=== PATIENT | female | born 1945 ===

== ENCOUNTER 2017-12-14 09:19 | Day surgery (SDC) | payer MEDICARE, MEDICAID ==
[2017-12-08 11:58] VITALS: BMI 30.2
[2017-12-14] MEDS ORDERED: methylPREDNISolone Depo 80 mg/ml Inj ONE (09:43)
[2017-12-14] MEDS ORDERED: Iohexol 300 10 ML ONE (09:44)
[2017-12-14] MEDS ORDERED: Bupivacaine HCl 0.25% PF (30 ml) Inj ONE (09:44)
[2017-12-14] MEDS ORDERED: Lidocaine 2% MPF (5 ml) Inj ONE ×2 (09:46→11:39)
[2017-12-14] MEDS ORDERED: Propofol 10 mg/ml Inj (20 ML) ONE (11:33)
[2017-12-14] MEDS ORDERED: Lactated Ringer's 1,000 ML IV ONE (11:40)
[2017-12-14] MEDS ORDERED: HYDROmorphone 0.5 mg/0.5 ml ISec IVP PRN (11:56)
[2017-12-14] MEDS ORDERED: Lactated Ringer's 1,000 ML IV SCH (12:00)
[2017-12-14 12:59] VITALS: RESP 16; O2SAT 99
[2017-12-14 13:53] VITALS: BP 153/75; PULSE 74; TEMP 98.4
--- NOTE | 2017-12-14 22:42 | OP ---
Copied To: Kristina Omalley MD Attending MD: Kristina Omalley MD PROCEDURE DATE: 12/14/2017 PREOPERATIVE DIAGNOSIS: Lumbar spondylosis. POSTOPERATIVE DIAGNOSIS: Lumbar spondylosis. PROCEDURES: Right L3, L4 and L5 medial branch nerve block and right sacroiliac joint steroid injection. ANESTHESIOLOGIST: Darron Reddy DO SURGEON: Kristina Omalley MD TYPE OF ANESTHESIA: Monitored anesthesia care. COMPLICATIONS: None. SPECIMEN: None. DESCRIPTION OF PROCEDURE: As follows: After we had discussion of the procedure with the patient including its risks, benefits, alternatives, outcome data, possibility of no effect or increased pain, the patient consented to the procedure. She denied any recent infection, bleeding tendencies, or being on anticoagulants. The decision was then made to proceed to the OR. The patient was placed on a fluoroscopy table in a prone position with two pillows underneath her abdomen. The back was prepped and draped in the usual sterile fashion. A sterile technique was adhered to during the entire procedure. The L4 and L5 vertebral levels were first identified in the anteroposterior view. The L3, L4 and L5 medial branch nerves were located at the junction of the superior articular process and the transverse process of the L4 and L5 pedicle along with the sacral ala. The three above targeted areas were visualized by turning the fluoroscopy towards the right at approximately 15 degrees. The skin overlying the three above targeted areas was then infiltrated with 1% lidocaine using 25-gauge needle. Subsequently, a 22-gauge 3-1/2-inch spinal needle was then incrementally advanced under fluoroscopic guidance until the tip of needle made bony contact with all three targeted areas. After satisfactory positioning of all three needles, approximately 3 mL of 0.25% Marcaine and Depo-Medrol mixture was injected. The needle was then removed. Then, the right sacroiliac joint was visualized on the anteroposterior view. The target is at the posterior opening to the inferior pole of the joint. The skin overlying this area was then infiltrated with 1% lidocaine using 25-gauge needle. Subsequently, a 22-gauge 3-1/2-inch spinal needle was then incrementally advanced under fluoroscopic guidance until the tip of the needle walked into the joint capsule. This was confirmed by injecting approximately 0.5 mL of Isovue contrast. After satisfactory positioning of the needle, approximately 3 mL of 0.25% Marcaine and Depo-Medrol mixture was injected. The needle was then removed. The patient's back was cleaned and dried, and bandages were applied. The patient was then transferred to the recovery area in good condition without any signs of GENERAL ASSEMBLER toxicity or any neurological deficit. She will be following in the office in approximately two to four weeks. En-Chato Omalley MD
--- NOTE | 2017-12-15 11:57 | RAD ---
Date of service: 12/14/2017 PROCEDURE: Lumbar epidural steroid injection. HISTORY: PAIN MANAGEMENT COMPARISON: None TECHNIQUE: Standard protocol for this study/examination. FINDINGS: Total fluoroscopic time (continuous mode) utilized during the procedure 18.3 (seconds). IMPRESSION: Total exam DLP: 5.72 (mGy)
== END 2017-12-14 13:55 | disposition home or self-care (01) ==
LOC: H.OPSURG 09:19
PROVIDERS: ATTEND Anesthesiology
DX: M47.816 Spondylosis without myelopathy or radiculopathy, lumbar region (principal); M46.1 Sacroiliitis, not elsewhere classified
CPT/HCPCS: 64493; 64494; 82948; J1040; J2704; J7120; Q9967

== ENCOUNTER 2018-07-22 09:06 | Emergency (ER) | payer MEDICARE, MEDICAID ==
[2018-07-22 09:14] VITALS: BMI 33.2
--- NOTE | 2018-07-22 10:37 | ED PDOC ---
Lower Extremity Pain/Injury Time Seen by Provider: 07/22/18 10:00 Chief Complaint (Nursing): Lower Extremity Problem/Injury History Per: Patient History/Exam Limitations: no limitations Onset/Duration Of Symptoms: Days Current Symptoms Are (Timing): Still Present Severity: Moderate Additional Complaint(s): 72 yo F with h/o DM, DVTs and breast cancer, presents with right lower leg pain, redness and swelling for one month. Pt reports she saw her PMD originally and was told it may be a small clot, but the pain and redness have gotten worse. She called her supervisor roving department yesterday but cannot be seen until 08/14 and was told to come to the ER which is why she is here now. Pt reports pain is worse when she walks, she feels burning pain. Pain is better when she is resting with her legs up.The redness has gotten worse as well. Pt has h/o 7-8 blood clots in her right leg, the last was in 2000 after a knee replacement, the first were after she had a b/l masectomy for breast CA which is in remission. Pt is not on anticoagulants, she has an IVC filter. Pt denies chest pain, SOB, recent travel, surgery or immobilization, smoking, hormone use. She also denies any injuries or trauma. Pt has not taken anything for pain, she reports she cannot take Ibuprofen due to abdominal pain Manufacturing Assembler: Dr. Abarca PMD: Dr. Quick - Risk Factors DVT Risk Factors: Pos: History Of DVT Past Medical History Vital Signs: Last Vital Signs Temp 97 F L 07/22/18 09:12 Pulse 85 07/22/18 09:12 Resp 18 07/22/18 09:12 BP 146/86 07/22/18 09:12 Pulse Ox 97 07/22/18 09:12 - Medical History PMH: Arthritis, Asthma, Diabetes, Gastritis, Hypercholesterolemia Denies: Chronic Kidney Disease Other PMH: breast cancer - Surgical History Surgical History: Cholecystectomy Other surgeries: bilateral masectomy, knee replacement - Family History Family History: States: Unknown Family Hx - Social History Current smoker - smoking cessation education provided: No Alcohol: None Drugs: Denies - Immunization History Hx Tetanus Toxoid Vaccination: No Hx Influenza Vaccination: No Hx Pneumococcal Vaccination: No - Home Medications Home Medications: Ambulatory Orders Medication Instructions Recorded Clonazepam 0.5 mg PO HS 09/06/14 Dicyclomine [Bentyl] 20 mg PO TID PRN 09/06/14 Esomeprazole Magnesium [Nexium] 40 mg PO DAILY 09/06/14 Fenofibrate Nanocrystallized 145 mg PO DAILY 09/06/14 [Fenofibrate] Rosuvastatin Calcium [Crestor] 40 mg PO DAILY 09/06/14 Sitagliptin Phosphate [Januvia] 100 mg PO DAILY 09/06/14 Aspirin [Ecotrin] 81 mg PO DAILY 12/06/14 Tiotropium [place] Inhaler 1 inhaler INH DAILY 02/28/15 [Spiriva Inhalation Handihaler Device] Clindamycin [Cleocin] 450 mg PO TID 7 Days #21 cap 07/22/18 - Allergies Allergies/Adverse Reactions: Allergies Allergy/AdvReac Type Severity Reaction Status Date / Time Sulfa (Sulfonamide Allergy RASH Verified 12/14/17 09:53 Antibiotics) Wells Criteria for PE - Wells Criteria for Pulmonary Embolism Clinical Signs and Symptoms of DVT: Yes Heart Rate >100: No Immobilization at least 3 days;Surgery previous 4 weeks: No Previous, objectively diagnosed PE or DVT: Yes Hemoptysis: No Malignancy w/treatment within 6 months, or palliative: No Total Score: 4.5 Review of Systems Constitutional: Negative for: Fever Cardiovascular: Negative for: Chest Pain Respiratory: Negative for: Shortness of Breath Physical Exam - Physical Exam Comments: GENERALIZED APPEARANCE: Patient is AAO x 3, in no acute distress. SKIN: Warm, dry; (-) cyanosis; (-) rash. HEAD: (-) scalp swelling, (-) tenderness. EYES: (-) conjunctival pallor, (-) scleral icterus. ENMT: Pharynx: (-) erythema; airway patent: (-) stridor; mucous membranes moist. NECK: (-) tenderness, (-) stiffness, (-) lymphadenopathy, (-) thyromegaly. CHEST AND RESPIRATORY: (-) rales, (-) rhonchi, (-) wheezes, (-) pleural friction rub; breathsounds equal bilaterally. HEART AND CARDIOVASCULAR: (-) irregularity; (-) murmur, (-) gallop, (-) pericardial rub. ABDOMEN AND GI: Soft; (-) tenderness, (-) guarding, (-) rebound, (-) palpable masses, (-)CVA tenderness. EXTREMITIES: RLE: +2 pulses, capillary refill <2sec, (+) FROM, mild swelling to lower R leg with mild erythema, warm to touch, moderate tenderness to palpation to posterior calf and lower leg, (+) Homans, (+) palpable cord Opposite leg: LLE. Distal pulses +2, capillary refill <2sec, (+) FROM, no swelling, erythema or palpable cords NEURO AND PSYCH: Mental status as above. Cranial nerves grossly intact; strengthsymmetric. - Laboratory Results Result Diagrams: 07/22/18 11:07 07/22/18 11:07 - ECG O2 Sat by Pulse Oximetry: 97 Medical Decision Making Medical Decision Makin:00 initial evaluation, 72 yo F with h/o DVTs presenting for RLE redness, swelling and pain [id number], DVT vs cellulitis * cbc, cmp, coags * duplex * xr * tylenol PO * re eval 14:15 pt recently back from [place], pending results, states she is otherwise feeling the same, pain is controlled while resting 15;34 Xray and US results reviewed, negative for DVT, xr reporting possible old fracture to medial mal, pt with no tenderness to that area, erythema and pain are proximal to the area, will consult podiatry spoke to puff iron operator podiatry, reviewed xray who does not see anything abnormal, can f/u in clinic if she has ankle, but nothing to right now as there is no pain at that area or open wound Discussed with pt all results, diagnosis, treatment, return precautions and f/u with pt who is understanding, in agreement and stable for dc Disposition - Clinical Impression Clinical Impression: Cellulitis of leg, right - Disposition Referrals: Podiatry Clinic [Outside] Mynor Quick MD [Family Provider] - Disposition Time: 15:35 Condition: STABLE Additional Instructions: Return to ED for new or worsening symptoms, fever >100.4, increase redness or pain, chest pain or difficulty breathing. Follow up with your primary care doctor in 1-2 days. Follow up with podiatry clinic if you develop ankle pain. Take antibiotics as prescribed until finished. Rest, and elevate your leg. Prescriptions: Clindamycin [Cleocin] 450 mg PO TID 7 Days #21 cap Instructions: Cellulitis (Skin Infection), Adult (DC) Forms: Gifts that Give (Divehi) Print Language: GE[place]GIAN - POA Present On Arrival: None Results - Diagnostic Imaging Results Radiology Results Extremity Ultrasound 07/22/18 10:05 IMPRESSION: No evidence of deep venous thrombosis in the right lower extremity. Tibia/Fibula X-Ray 07/22/18 10:05 IMPRESSION: No evidence of acute displaced fracture nor dislocation. Right total knee replacement with no evidence of hardware failure Slight cortical regularity of the inferior tip of the medial malleolus mild posttraumatic changes distal; rule out sequela of old trauma - Lab Results Lab Results: 07/22/18 07/22/18 07/22/18 11:07 11:07 11:07 WBC 6.9 RBC 4.05 Hgb 12.6 Hct 37.4 MCV 92.3 MCH 31.2 H MCHC 33.9 RDW 13.4 Plt Count 208 MPV 8.8 Neut % (Auto) 65.5 Lymph % (Auto) 24.9 [place] % (Auto) 7.8 Eos % (Auto) 1.5 Baso % (Auto) 0.3 Neut # (Auto) 4.5 Lymph # (Auto) 1.7 [place] # (Auto) 0.5 Eos # (Auto) 0.1 Baso # (Auto) 0.0 PT 11.9 INR 1.0 APTT 28.2 Sodium 144 Potassium 4.4 Chloride 110 H Carbon Dioxide 26 Anion Gap 12 BUN 19 H Creatinine 0.5 L Est GFR ( Amer) > 60 Est GFR (Non-Af Amer) > 60 Random Glucose 148 H Calcium 9.6 Total Bilirubin 0.3 AST 39 H ALT 23 Alkaline Phosphatase 50 Total Protein 7.1 Albumin 3.8 Globulin 3.3 Albumin/Globulin Ratio 1.2
[2018-07-22 11:17] LABS: BASO % 0.3 % (0.0-2.0); EOS # 0.1 K/uL (0.0-0.7); EOS % 1.5 % (0.0-4.0); HEMOGLOBIN 12.6 g/dL (12.0-16.0); LYMPH # 1.7 K/uL (1.0-4.3); LYMPH % 24.9 % (20.0-40.0); MEAN CELL VOLUME 92.3 fl (81.0-99.0); MEAN CORPUSCULAR HEMOGLOBIN 31.2 pg (27.0-31.0); MEAN CORPUSCULAR HGB CONC 33.9 g/dL (33.0-37.0); MEAN PLATELET VOLUME 8.8 fl (7.2-11.7); MONO # 0.5 K/uL (0.0-0.8); MONO % 7.8 % (0.0-10.0); NEUT # 4.5 K/uL (1.8-7.0); NEUT % 65.5 % (50.0-75.0); RBC 4.05 Mil/uL (3.80-5.20); RED CELL DISTRIBUTION WIDTH 13.4 % (11.5-14.5); WHITE BLOOD COUNT 6.9 K/uL (4.8-10.8)
[2018-07-22 11:20] LABS: PROTHROMBIN TIME 11.9 Seconds (9.8-13.1)
[2018-07-22 11:23] LABS: PARTIAL THROMBOPLASTIN TIME 28.2 Seconds (25.6-37.1)
[2018-07-22 11:24] LABS: ALB/GLOB RATIO 1.2 (1.0-2.1); ALBUMIN 3.8 g/dL (3.5-5.0); ALT/SGPT 23 U/L (9-52); AST/SGOT 39 U/L (14-36); BLOOD UREA NITROGEN 19 mg/dl (7-17); CALCIUM 9.6 mg/dL (8.4-10.2); GFR NON-AFRICAN AMERICAN > 60
--- NOTE | 2018-07-22 15:12 | RAD ---
Date of service: 07/22/2018 PROCEDURE: Radiographs of the right tibia and fibula. HISTORY: right leg pain and swelling COMPARISON: None available TECHNIQUE: Frontal and lateral views obtained. FINDINGS: BONES: No fracture or destructive lesion. Findings could represent sequela of old trauma JOINT SPACES: In situ in situ total knee replacement. Hardware appears intact without evidence of loosening or infection questionable. Slight cortical irregularity of the inferior tip of the medial malleolus. OTHER FINDINGS: None. IMPRESSION: No evidence of acute displaced fracture nor dislocation. Right total knee replacement with no evidence of hardware failure Slight cortical regularity of the inferior tip of the medial malleolus mild posttraumatic changes distal; rule out sequela of old trauma
--- NOTE | 2018-07-22 15:22 | US ---
Date of service: 07/22/2018 PROCEDURE: Right lower extremity venous duplex Doppler. HISTORY: h/o clots, right left pain and swelling COMPARISON: None available. TECHNIQUE: Common femoral, superficial femoral, popliteal and posterior tibial veins were evaluated. Flow was assessed with color Doppler, compressibility, assessment of phasic flow and augmentation response. FINDINGS: COMMON FEMORAL VEIN: Unremarkable. SUPERFICIAL FEMORAL VEIN: Unremarkable. POPLITEAL VEIN: Unremarkable. POSTERIOR TIBIAL VEIN: Unremarkable. OTHER FINDINGS: None. IMPRESSION: No evidence of deep venous thrombosis in the right lower extremity.
[2018-07-22 15:33] VITALS: BP 132/74; PULSE 78; RESP 19; TEMP 98.3
[2018-07-22 15:35] VITALS: O2SAT 97
== END 2018-07-22 15:50 | disposition home or self-care (01) ==
LOC: H.ER 09:06
DX: L03.115 Cellulitis of right lower limb (principal); E11.9 Type 2 diabetes mellitus without complications; J45.909 Unspecified asthma, uncomplicated; Z85.3 Personal history of malignant neoplasm of breast; Z86.718 Personal history of other venous thrombosis and embolism; Z96.653 Presence of artificial knee joint, bilateral; Z88.2 Allergy status to sulfonamides; Z79.82 Long term (current) use of aspirin; E78.00 Pure hypercholesterolemia, unspecified

== ENCOUNTER 2018-07-31 15:06 | Inpatient (IN) | payer MEDICARE, MEDICAID ==
[2018-07-31 15:07] VITALS: BMI 33.2
--- NOTE | 2018-07-31 16:32 | ED PDOC ---
Lower Extremity Pain/Injury Time Seen by Provider: 07/31/18 15:59 Chief Complaint (Nursing): Lower Extremity Problem/Injury Chief Complaint (Provider): left leg redness History Per: Patient History/Exam Limitations: no limitations Onset/Duration Of Symptoms: Days Current Symptoms Are (Timing): Still Present Severity: Moderate Pain Scale Rating Of: 6 Additional History Per: Patient Additional Complaint(s): 72 y/o female with past medical history of DM and DVT presents to the ED for worsening lowwer leg swelling and redness. She states she was seen by Dr. Holland (derm) today for follow up on skin redness and sent to the ed for re- eval and admission. Pt states she was seen here on 07/22/3018 and sent home on Clindamycin with no improvement after 9 days. Pt reports the pain/swelling and redness has worsened since last seen. Dr. Bailey (PMD) wants patient admitted for iv antibiotics Past Medical History Reviewed: Historical Data, Nursing Documentation, Vital Signs Vital Signs: Last Vital Signs Temp 98.4 F 07/31/18 15:13 Pulse 91 H 07/31/18 15:13 Resp 18 07/31/18 15:13 BP 158/89 H 07/31/18 15:13 Pulse Ox 97 07/31/18 15:13 TAI Report Viewed: No - Medical History PMH: Arthritis, Asthma, Diabetes, Gastritis, Hypercholesterolemia Denies: Chronic Kidney Disease - Surgical History Surgical History: Cholecystectomy - Family History Family History: States: Unknown Family Hx - Immunization History Hx Tetanus Toxoid Vaccination: No Hx Influenza Vaccination: No Hx Pneumococcal Vaccination: No - Home Medications Home Medications: Ambulatory Orders Medication Instructions Recorded Clonazepam 1 mg PO HS 09/06/14 Esomeprazole Magnesium [Nexium] 40 mg PO QPM 09/06/14 Fenofibrate Nanocrystallized 145 mg PO DAILY 09/06/14 [Fenofibrate] Rosuvastatin Calcium [Crestor] 40 mg PO DAILY 09/06/14 Sitagliptin Phosphate [Januvia] 100 mg PO DAILY 09/06/14 Aspirin [Ecotrin] 81 mg PO DAILY 12/06/14 Clindamycin [Cleocin] 450 mg PO TID 7 Days #21 cap 07/22/18 Atenolol [Tenormin] 25 mg PO DAILY 07/31/18 Biotin 1 cap PO DAILY 07/31/18 Calcium Carbonate [Caltrate] 1 tab PO DAILY 07/31/18 Ergocalciferol (Vitamin D2) 50,000 unit PO SUN 07/31/18 [Vitamin D2] FLUoxetine [Prozac] 20 mg PO QPM 07/31/18 Lipase/Protease/Amylase [Creon Dr 1 cap PO BID 07/31/18 24,000 Units Capsule] Memantine HCl/Donepezil HCl 1 cap PO DAILY 07/31/18 [Namzaric 28 mg-10 mg Capsule] Tiotropium Br/Olodaterol HCl 2 puff IH DAILY 07/31/18 [Stiolto Respimat Inhal [place]] - Allergies Allergies/Adverse Reactions: Allergies Allergy/AdvReac Type Severity Reaction Status Date / Time Sulfa (Sulfonamide Allergy RASH Verified 07/31/18 15:13 Antibiotics) Wells Criteria for PE - Wells Criteria for Pulmonary Embolism Clinical Signs and Symptoms of DVT: Yes P.E is #1 Diagnosis, or Equally Likely: No Heart Rate >100: No Immobilization at least 3 days;Surgery previous 4 weeks: No Previous, objectively diagnosed PE or DVT: Yes Hemoptysis: No Malignancy w/treatment within 6 months, or palliative: No Total Score: 4.5 Review of Systems Constitutional: Negative for: Fever, Chills, Sweats, Weakness, Malaise Cardiovascular: Positive for: Edema (right lower leg edema 2+ ). Negative for: Chest Pain, Palpitations, Light Headedness Respiratory: Negative for: Cough, Shortness of Breath, SOB with Exertion, Wheezing Gastrointestinal: Negative for: Nausea, Vomiting, Abdominal Pain, Diarrhea, Melena Genitourinary Female: Negative for: Dysuria Musculoskeletal: Positive for: Leg Pain (redness to right lower leg for one month, skin is sensitive to touch. pt reports redness has not improved. ) Physical Exam - Reviewed Nursing Documentation Reviewed: Yes Vital Signs Reviewed: Yes - Physical Exam Appears: Positive for: Well, Non-toxic, No Acute Distress Head Exam: Positive for: ATRAUMATIC, NORMAL INSPECTION, NORMOCEPHALIC Skin: Positive for: Normal Color, Warm (NO SKIN BREAK DOWN NOTED TO RIGHT LOWER LEG), Dry Eye Exam: Positive for: EOMI, Normal appearance, PERRL ENT: Positive for: Normal ENT Inspection Neck: Positive for: Normal, Painless ROM, Supple Cardiovascular/Chest: Positive for: Regular Rate, Rhythm Respiratory: Positive for: CNT, Normal Breath Sounds Pulses-Dorsalis Pedis (L): 2+ Pulses-Dorsalis Pedis (R): 2+ Pulses-Radial (L): 2+ Pulses-Radial (R): 2+ Gastrointestinal/Abdominal: Positive for: Normal Exam, Bowel Sounds, Soft. Negative for: Tenderness, Mass Back: Positive for: Normal Inspection Extremity: Positive for: Normal ROM, Tenderness (right lower leg pain, circumferential redness above the right ankle ), Capillary Refill (<secs bilat, right lower extremity warm to touch, redness does not extend to foot. no swelling to right foot noted. ) Neurological/Psych: Positive for: Awake, Alert, Normal Tone, Oriented - Laboratory Results Result Diagrams: 07/31/18 16:52 07/31/18 16:52 - ECG O2 Sat by Pulse Oximetry: 97 - Progress ED Course And Treament: CBC CMP ESR BLOOD CULTURE X2 VANCOMYCIN 1GM IV PT HAS TWO US DOPPLERS OF LOWER EXTREMITY LAST ONE DONE 07/22 WHICH WAS NEGATIVE FOR DVT. PT ALSO HAD XRAY OF TIB/FIB NEG FOR OSTEO. NO FURTHER WORK-UP NEEDED IN THE ED. PODIATRY CONSULTED, TEAM WILL SEE PATIENT ON THE FLOOR. 18:20: PT RE-EVALUATED AT THIS TIME, LABS REVIEWED BY ME. CLINICAL FINDINGS DISCUSSED WITH PT, MADE AWARE OF ADMISSION AND PLAN. PT AGREES. PT C/O PAIN TO RIGHT LOWER LEG ORDER FOR TYLENOL 975MG PO TO BE GIVEN. VANCOMYCIN 1GM INFUSING AT THIS TIME. NO SIGNS OF ALLERGIC REACTION. PT ADMITTED TO DR. BAILEY SERVICE, INPATIENT MED/SURG. Disposition - Clinical Impression Clinical Impression: Cellulitis - Patient ED Disposition Is Patient to be Admitted: Yes Doctor Will See Patient In The: Hospital Counseled Patient/Family Regarding: Diagnosis - Disposition Disposition Time: 18:20 Condition: STABLE - Pt Status Changed To: Hospital Disposition Of: Inpatient - Admit Certification Admit to Inpatient:: After my assessment, the patient will require hospitalization for at least two midnights. This is because of the severity of symptoms shown, intensity of services needed, and/or the medical risk in this patient being treated as an outpatient. - POA Present On Arrival: None
[2018-07-31] MEDS ORDERED: Vancomycin 1 g Inj ONE (16:53)
[2018-07-31 16:59] LABS: BASO % 0.5 % (0.0-2.0); EOS # 0.1 K/uL (0.0-0.7); EOS % 1.1 % (0.0-4.0); HEMOGLOBIN 12.2 g/dL (12.0-16.0); LYMPH # 1.9 K/uL (1.0-4.3); LYMPH % 25.2 % (20.0-40.0); MEAN CELL VOLUME 92.7 fl (81.0-99.0); MEAN CORPUSCULAR HEMOGLOBIN 31.2 pg (27.0-31.0); MEAN CORPUSCULAR HGB CONC 33.7 g/dL (33.0-37.0); MEAN PLATELET VOLUME 8.8 fl (7.2-11.7); MONO # 0.6 K/uL (0.0-0.8); MONO % 7.9 % (0.0-10.0); NEUT % 65.3 % (50.0-75.0); RBC 3.91 Mil/uL (3.80-5.20); RED CELL DISTRIBUTION WIDTH 13.6 % (11.5-14.5); WHITE BLOOD COUNT 7.7 K/uL (4.8-10.8)
[2018-07-31 17:08] LABS: PROTHROMBIN TIME 11.9 Seconds (9.8-13.1)
[2018-07-31 17:10] LABS: PARTIAL THROMBOPLASTIN TIME 28.3 Seconds (25.6-37.1)
[2018-07-31 17:22] LABS: ALB/GLOB RATIO 1.4 (1.0-2.1); ALBUMIN 4.2 g/dL (3.5-5.0); ALT/SGPT 39 U/L (9-52); AST/SGOT 35 U/L (14-36); BLOOD UREA NITROGEN 16 mg/dl (7-17); CALCIUM 9.4 mg/dL (8.4-10.2); GFR NON-AFRICAN AMERICAN > 60
[2018-08-01] MEDS: Piperacillin/Tazobact 3.375 GM in Sodium Chloride 0.9% 100 ML IVPB SCH ×2 (04:20→09:33)
[2018-08-01 06:14] LABS: SQUAMOUS EPITHIAL 1 /hpf (0-5); URINE BILIRUBIN NEGATIVE (NEGATIVE); URINE BLOOD SMALL (NEGATIVE); URINE CLARITY CLEAR (Clear); URINE COLOR YELLOW (YELLOW); URINE GLUCOSE (UA) NEG (NEGATIVE); URINE LEUKOCYTE ESTERASE TRACE Leu/uL (Negative); URINE PROTEIN NEGATIVE (NEGATIVE); URINE UROBILINOGEN 0.2-1.0 mg/dL (0.2-1.0)
[2018-08-01 06:48] LABS: HEMOGLOBIN 11.7 g/dL (12.0-16.0); MEAN CELL VOLUME 92.7 fl (81.0-99.0); MEAN CORPUSCULAR HEMOGLOBIN 30.7 pg (27.0-31.0); MEAN CORPUSCULAR HGB CONC 33.2 g/dL (33.0-37.0); RBC 3.82 Mil/uL (3.80-5.20); RED CELL DISTRIBUTION WIDTH 13.7 % (11.5-14.5); WHITE BLOOD COUNT 5.8 K/uL (4.8-10.8)
[2018-08-01 07:03] LABS: ALB/GLOB RATIO 1.3 (1.0-2.1); ALBUMIN 3.9 g/dL (3.5-5.0); ALT/SGPT 37 U/L (9-52); AST/SGOT 22 U/L (14-36); BLOOD UREA NITROGEN 19 mg/dl (7-17); CALCIUM 9.4 mg/dL (8.4-10.2); GFR NON-AFRICAN AMERICAN > 60; HDL CHOLESTEROL 44 MG/DL (30-70)
[2018-08-01 07:09] LABS: LDL CHOLESTEROL 55 mg/dL (0-129)
[2018-08-01] MEDS ORDERED: Patient's Own Med (Memantine Hcl/Donepezil Hcl [Namzaric 28 Mg-10 Mg Capsule] 1 CAP) PO SCH (09:00)
[2018-08-01] MEDS ORDERED: Patient's Own Med (Calcium Carbonate [Caltrate] 1 TAB) PO SCH (09:00)
[2018-08-01] MEDS ORDERED: Amylase/Lipase/Protease 5,000 Units ECC PO SCH (09:00)
[2018-08-01] MEDS: Pantoprazole 40 mg EC Tab PO SCH (09:31)
[2018-08-01] MEDS: Enoxaparin 40 mg Syringe SC SCH (09:31)
--- NOTE | 2018-08-01 10:10 | CP.PCM.CON ---
History of Present Illness - History of Present Illness History of Present Illness: Podiatry consult note - Dr. Mohamud 72F seen and evaluated at bedside this AM with right LE cellulitis. Resting comfortably, reports mild pain to her right LE. States that she had been seen by Dr. Quick a few weeks ago and was told that she had issues with her veins. States that she had testing for blood clots which was negative. States that she saw a quality review specialist who told her to report to the ED for cellulitis and to receive IV abx as she was given PO abx in the past which did not help the redness or pain. Denies n/v/f/c/sob today and has no other acute complaints. PMHx: DM and DVT PSHx: cholecystectomy All: sulfa Past Patient History - Past Medical History & Family History Past Medical History?: Yes - Past Social History Smoking Status: Never Smoked - CARDIAC Hx Cardiac Disorders: Yes Hx Hypercholesterolemia: Yes - PULMONARY Hx Respiratory Disorders: No - NEUROLOGICAL Hx Neurological Disorder: No - HEENT Hx HEENT Problems: Yes Hx Cataracts: Yes - RENAL Hx Chronic Kidney Disease: No - ENDOCRINE/METABOLIC Hx Endocrine Disorders: Yes Hx Diabetes Mellitus Type 2: Yes - HEMATOLOGICAL/ONCOLOGICAL Hx Blood Disorders: Yes Hx Blood Transfusions: Yes Hx Blood Transfusion Reaction: No Hx Cancer: Yes (BILATERAL BREAST) - INTEGUMENTARY Hx Dermatological Problems: No Hx Cellulitis: Yes - MUSCULOSKELETAL/RHEUMATOLOGICAL Hx Musculoskeletal Disorders: Yes Hx Arthritis: Yes Hx Falls: No - GASTROINTESTINAL Hx Gastrointestinal Disorders: Yes Hx Gastritis: Yes - GENITOURINARY/GYNECOLOGICAL Hx Genitourinary Disorders: No - PSYCHIATRIC Hx Psychophysiologic Disorder: No Hx Substance Use: No - SURGICAL HISTORY Hx Surgeries: Yes Hx Cholecystectomy: Yes - ANESTHESIA Hx Anesthesia: Yes Hx Anesthesia Reactions: No Hx Malignant Hyperthermia: No Meds Allergies/Adverse Reactions: Allergies Allergy/AdvReac Type Severity Reaction Status Date / Time Sulfa (Sulfonamide Allergy RASH Verified 07/31/18 15:13 Antibiotics) - Medications Medications: Current Medications Acetaminophen (Tylenol 325mg Tab) 650 mg PO Q4 PRN PRN Reason: Pain, moderate (4-7) Aspirin (Ecotrin) 81 mg PO DAILY [facility] Last Admin: 08/01/18 09:31 Dose: 81 mg Atenolol (Tenormin) 25 mg PO DAILY [facility] Last Admin: 08/01/18 09:31 Dose: 25 mg Calcium Carbonate (Oscal) 500 mg PO DAILY [facility] Last Admin: 08/01/18 09:31 Dose: 500 mg Clonazepam (Klonopin) 0.5 mg PO HS [facility] Last Admin: 07/31/18 23:34 Dose: 0.5 mg Enoxaparin Sodium (Lovenox) 40 mg SC DAILY [facility]; Protocol Last Admin: 08/01/18 09:31 Dose: 40 mg Ergocalciferol (Drisdol 50,000 Intl Units Cap) 1 cap PO SUN [facility] Fluoxetine HCl (Prozac) 20 mg PO QPM [facility] Home Med (Lipase/Protease/Amylase [Creon Dr 24,000 Units Capsule]) 1 cap PO BID [facility] Home Med (Memantine Hcl/Donepezil Hcl [Namzaric 28 Mg-10 Mg Capsule]) 1 cap PO DAILY [facility] Home Med (Tiotropium Br/Olodaterol Hcl [Stiolto Respimat Inhal [place]]) 2 puff IH DAILY [facility] Piperacillin Sod/Tazobactam (Sod 3.375 gm/ Sodium Chloride) 100 mls @ 100 mls/hr IVPB Q6 [facility]; Protocol Last Admin: 08/01/18 09:33 Dose: 100 mls/hr Vancomycin HCl 1 gm/ Sodium (Chloride) 250 mls @ 166.667 mls/hr IVPB Q12 [facility]; Protocol Pantoprazole Sodium (Protonix Ec Tab) 40 mg PO DAILY [facility] Last Admin: 08/01/18 09:31 Dose: 40 mg Sitagliptin Phosphate (Januvia) 100 mg PO DAILY [facility] Last Admin: 08/01/18 09:31 Dose: 100 mg Physical Exam - Constitutional Appears: Non-toxic - Head Exam Head Exam: ATRAUMATIC - Extremities Exam Additional comments: RLE focused exam VASC: DP and PT pulses palpable; cap refill <3 seconds; mild edema noted to the LE; pedal hair growth absent DERM: no open lesions or wounds present; erythema present to the posterior aspect of the right leg and ankle; no streaking noted ORTHO: mild pain on palpation at the erythematous region NEURO: gross and protective sensation intact - Neurological Exam Neurological exam: Alert, Oriented x3 - Psychiatric Exam Psychiatric exam: Normal Affect Results - Vital Signs Recent Vital Signs: Last Vital Signs Temp 98.2 F 08/01/18 08:27 Pulse 73 08/01/18 09:31 Resp 20 08/01/18 08:27 BP 149/85 08/01/18 09:31 Pulse Ox 98 08/01/18 08:27 - Labs Result Diagrams: 08/01/18 05:30 08/01/18 05:30 Labs: Laboratory Results - last 24 hr 07/31/18 07/31/18 07/31/18 16:52 16:52 16:52 WBC 7.7 RBC 3.91 Hgb 12.2 Hct 36.2 MCV 92.7 MCH 31.2 H MCHC 33.7 RDW 13.6 Plt Count 233 MPV 8.8 Neut % (Auto) 65.3 Lymph % (Auto) 25.2 [place] % (Auto) 7.9 Eos % (Auto) 1.1 Baso % (Auto) 0.5 Neut # (Auto) 5.0 Lymph # (Auto) 1.9 [place] # (Auto) 0.6 Eos # (Auto) 0.1 Baso # (Auto) 0.0 ESR PT 11.9 INR 1.0 APTT 28.3 Sodium 142 Potassium 3.9 Chloride 106 Carbon Dioxide 28 Anion Gap 12 BUN 16 Creatinine 0.9 Est GFR ( Amer) > 60 Est GFR (Non-Af Amer) > 60 POC Glucose (mg/dL) Random Glucose 144 H Calcium 9.4 Total Bilirubin 0.3 AST 35 ALT 39 Alkaline Phosphatase 48 Total Protein 7.3 Albumin 4.2 Globulin 3.1 Albumin/Globulin Ratio 1.4 Triglycerides Cholesterol LDL Cholesterol Direct HDL Cholesterol Thyroxine (T4) TSH 3rd Generation Urine Color Urine Clarity Urine pH Ur Specific [place] Urine Protein Urine Glucose (UA) Urine Ketones Urine Blood Urine Nitrate Urine Bilirubin Urine Urobilinogen Ur Leukocyte Esterase Urine RBC (Auto) Urine Microscopic WBC Ur Squamous Epith Cells 07/31/18 07/31/18 07/31/18 19:15 21:42 23:49 WBC RBC Hgb Hct MCV MCH MCHC RDW Plt Count MPV Neut % (Auto) Lymph % (Auto) [place] % (Auto) Eos % (Auto) Baso % (Auto) Neut # (Auto) Lymph # (Auto) [place] # (Auto) Eos # (Auto) Baso # (Auto) ESR 18 PT INR APTT Sodium Potassium Chloride Carbon Dioxide Anion Gap BUN Creatinine Est GFR ( Amer) Est GFR (Non-Af Amer) POC Glucose (mg/dL) 179 H Random Glucose Calcium Total Bilirubin AST ALT Alkaline Phosphatase Total Protein Albumin Globulin Albumin/Globulin Ratio Triglycerides Cholesterol LDL Cholesterol Direct HDL Cholesterol Thyroxine (T4) TSH 3rd Generation Urine Color Yellow Urine Clarity Clear Urine pH 5.0 Ur Specific [place] 1.023 Urine Protein Negative Urine Glucose (UA) Neg Urine Ketones Negative Urine Blood Small Urine Nitrate Negative Urine Bilirubin Negative Urine Urobilinogen 0.2-1.0 Ur Leukocyte Esterase Trace Urine RBC (Auto) 4 H Urine Microscopic WBC 17 H Ur Squamous Epith Cells 1 08/01/18 08/01/18 08/01/18 05:25 05:30 05:30 WBC 5.8 RBC 3.82 Hgb 11.7 L Hct 35.4 MCV 92.7 MCH 30.7 MCHC 33.2 RDW 13.7 Plt Count 218 MPV Neut % (Auto) Lymph % (Auto) [place] % (Auto) Eos % (Auto) Baso % (Auto) Neut # (Auto) Lymph # (Auto) [place] # (Auto) Eos # (Auto) Baso # (Auto) ESR PT INR APTT Sodium 141 Potassium 3.9 Chloride 108 H Carbon Dioxide 24 Anion Gap 13 BUN 19 H Creatinine 0.6 L Est GFR ( Amer) > 60 Est GFR (Non-Af Amer) > 60 POC Glucose (mg/dL) 129 H Random Glucose 132 H Calcium 9.4 Total Bilirubin 0.4 AST 22 ALT 37 Alkaline Phosphatase 44 Total Protein 7.0 Albumin 3.9 Globulin 3.0 Albumin/Globulin Ratio 1.3 Triglycerides 146 Cholesterol 118 LDL Cholesterol Direct 55 HDL Cholesterol 44 Thyroxine (T4) 10.5 TSH 3rd Generation 3.21 Urine Color Urine Clarity Urine pH Ur Specific [place] Urine Protein Urine Glucose (UA) Urine Ketones Urine Blood Urine Nitrate Urine Bilirubin Urine Urobilinogen Ur Leukocyte Esterase Urine RBC (Auto) Urine Microscopic WBC Ur Squamous Epith Cells Assessment & Plan - Assessment and Plan (Free Text) Assessment: 72F with RLE cellulitis Plan: Patient seen and evaluated Discussed with Dr. Mohamud Continue abx per medicine Left open Continue lotion on feet Pillow for offloading of area with cellulitis Thank you for the consult Upon d/c will follow with Dr. Mohamud as outpatient Will continue to follow - Date & Time Date: 08/01/18 Time: 10:19
--- NOTE | 2018-08-01 10:53 | CP.PCM.CON ---
History of Present Illness - History of Present Illness History of Present Illness: Infectious Disease Consultation- Asked to see this patient at the request of for right leg cellulitis. HPI- Patient is a pleasant 72 year old female with PMH of DM II, breast CA s/p b/l mastectomy, multiple DVT, right knee replacement many years ago who was admitted for redness and swelling behind her right lower leg. Patient states that she has had this for the past 2 months and she has been on several different antibiotics as outpatient. She states she was seen by Dr. Holland yesterday for follow up on skin redness and sent to the ed for re-eval and IV antibiotics. Pt. states she was on keflex as outpatient and was f/u with corporate scheduler and PMD. Pt states she was seen here on 07/22/3018 and sent home on Clindamycin with no improvement after 9 days and then she saw the corporate scheduler amd was on few days of keflex as per him but when she went to see corporate scheduler for f/u yesterday he advised her to go to ED for further eval and treatment since her right LE redness and swelling had worsened. She also c/o pain in that region. She denies any injury to the area. She does state that she has had multiple DVT in that same leg. Since admission last night she has been on IV vanco and zosyn as per and she states the swelling and the redness in her right leg has decreased. She denies any fever or chills. I'm asked to help with antibiotic management. Allergy- Sulfa ( rash) Review of Systems - Review of Systems Review of Systems: ROS- denies any fever or chills, denies any PÉREZ, denies any cough or sob, denies any chest pain, denies any nausea or vomiting, denies any abd. pain, denies any dysurea, denies any diarrhea, Right lower leg swelling and redness and pain, denies any injury tot he area. Past Patient History - Past Medical History & Family History Past Medical History?: Yes - Past Social History Smoking Status: Never Smoked - CARDIAC Hx Cardiac Disorders: Yes Hx Hypercholesterolemia: Yes - PULMONARY Hx Respiratory Disorders: No - NEUROLOGICAL Hx Neurological Disorder: No - HEENT Hx HEENT Problems: Yes Hx Cataracts: Yes - RENAL Hx Chronic Kidney Disease: No - ENDOCRINE/METABOLIC Hx Endocrine Disorders: Yes Hx Diabetes Mellitus Type 2: Yes - HEMATOLOGICAL/ONCOLOGICAL Hx Blood Disorders: Yes Hx Blood Transfusions: Yes Hx Blood Transfusion Reaction: No Hx Cancer: Yes (BILATERAL BREAST) - INTEGUMENTARY Hx Dermatological Problems: No Hx Cellulitis: Yes - MUSCULOSKELETAL/RHEUMATOLOGICAL Hx Musculoskeletal Disorders: Yes Hx Arthritis: Yes Hx Falls: No - GASTROINTESTINAL Hx Gastrointestinal Disorders: Yes Hx Gastritis: Yes - GENITOURINARY/GYNECOLOGICAL Hx Genitourinary Disorders: No - PSYCHIATRIC Hx Psychophysiologic Disorder: No Hx Substance Use: No - SURGICAL HISTORY Hx Surgeries: Yes Hx Cholecystectomy: Yes - ANESTHESIA Hx Anesthesia: Yes Hx Anesthesia Reactions: No Hx Malignant Hyperthermia: No Meds Allergies/Adverse Reactions: Allergies Allergy/AdvReac Type Severity Reaction Status Date / Time Sulfa (Sulfonamide Allergy RASH Verified 07/31/18 15:13 Antibiotics) - Medications Medications: Current Medications Acetaminophen (Tylenol 325mg Tab) 650 mg PO Q4 PRN PRN Reason: Pain, moderate (4-7) Aspirin (Ecotrin) 81 mg PO DAILY [facility] Last Admin: 08/01/18 09:31 Dose: 81 mg Atenolol (Tenormin) 25 mg PO DAILY [facility] Last Admin: 08/01/18 09:31 Dose: 25 mg Calcium Carbonate (Oscal) 500 mg PO DAILY [facility] Last Admin: 08/01/18 09:31 Dose: 500 mg Clonazepam (Klonopin) 0.5 mg PO HS [facility] Last Admin: 07/31/18 23:34 Dose: 0.5 mg Enoxaparin Sodium (Lovenox) 40 mg SC DAILY [facility]; Protocol Last Admin: 08/01/18 09:31 Dose: 40 mg Ergocalciferol (Drisdol 50,000 Intl Units Cap) 1 cap PO SUN [facility] Fluoxetine HCl (Prozac) 20 mg PO QPM [facility] Home Med (Lipase/Protease/Amylase [Creon Dr 24,000 Units Capsule]) 1 cap PO BID [facility] Home Med (Memantine Hcl/Donepezil Hcl [Namzaric 28 Mg-10 Mg Capsule]) 1 cap PO DAILY [facility] Home Med (Tiotropium Br/Olodaterol Hcl [Stiolto Respimat Inhal [place]]) 2 puff IH DAILY [facility] Piperacillin Sod/Tazobactam (Sod 3.375 gm/ Sodium Chloride) 100 mls @ 100 mls/hr IVPB Q6 [facility]; Protocol Last Admin: 08/01/18 09:33 Dose: 100 mls/hr Vancomycin HCl 1 gm/ Sodium (Chloride) 250 mls @ 166.667 mls/hr IVPB Q12 [facility]; Protocol Pantoprazole Sodium (Protonix Ec Tab) 40 mg PO DAILY [facility] Last Admin: 08/01/18 09:31 Dose: 40 mg Sitagliptin Phosphate (Januvia) 100 mg PO DAILY [facility] Last Admin: 08/01/18 09:31 Dose: 100 mg Physical Exam - Constitutional Appears: No Acute Distress - Head Exam Head Exam: ATRAUMATIC - Eye Exam Eye Exam: EOMI, PERRL - ENT Exam ENT Exam: Normal Oropharynx - Neck Exam Neck exam: Positive for: Full Rom - Respiratory Exam Respiratory Exam: Clear to Auscultation Bilateral, NORMAL BREATHING PATTERN - Cardiovascular Exam Cardiovascular Exam: RRR, +S1, +S2 - GI/Abdominal Exam GI & Abdominal Exam: Normal Bowel Sounds, Soft Additional comments: NT, ND - Extremities Exam Additional comments: Right posterior lower leg with demarcated area of light pink, + tenderness to palpation, minimal warmth, no fluctuation the entire right LE larger than the left with multiple varicose veins throughout - Neurological Exam Neurological exam: Alert, Oriented x3 Results - Vital Signs Recent Vital Signs: Last Vital Signs Temp 98.2 F 08/01/18 08:27 Pulse 73 08/01/18 09:31 Resp 20 08/01/18 08:27 BP 149/85 08/01/18 09:31 Pulse Ox 98 08/01/18 08:27 - Labs Result Diagrams: 08/01/18 05:30 08/01/18 05:30 Labs: Laboratory Results - last 24 hr 07/31/18 07/31/18 07/31/18 16:52 16:52 16:52 WBC 7.7 RBC 3.91 Hgb 12.2 Hct 36.2 MCV 92.7 MCH 31.2 H MCHC 33.7 RDW 13.6 Plt Count 233 MPV 8.8 Neut % (Auto) 65.3 Lymph % (Auto) 25.2 [place] % (Auto) 7.9 Eos % (Auto) 1.1 Baso % (Auto) 0.5 Neut # (Auto) 5.0 Lymph # (Auto) 1.9 [place] # (Auto) 0.6 Eos # (Auto) 0.1 Baso # (Auto) 0.0 ESR PT 11.9 INR 1.0 APTT 28.3 Sodium 142 Potassium 3.9 Chloride 106 Carbon Dioxide 28 Anion Gap 12 BUN 16 Creatinine 0.9 Est GFR ( Amer) > 60 Est GFR (Non-Af Amer) > 60 POC Glucose (mg/dL) Random Glucose 144 H Calcium 9.4 Total Bilirubin 0.3 AST 35 ALT 39 Alkaline Phosphatase 48 Total Protein 7.3 Albumin 4.2 Globulin 3.1 Albumin/Globulin Ratio 1.4 Triglycerides Cholesterol LDL Cholesterol Direct HDL Cholesterol Thyroxine (T4) TSH 3rd Generation Urine Color Urine Clarity Urine pH Ur Specific [place] Urine Protein Urine Glucose (UA) Urine Ketones Urine Blood Urine Nitrate Urine Bilirubin Urine Urobilinogen Ur Leukocyte Esterase Urine RBC (Auto) Urine Microscopic WBC Ur Squamous Epith Cells 07/31/18 07/31/18 07/31/18 19:15 21:42 23:49 WBC RBC Hgb Hct MCV MCH MCHC RDW Plt Count MPV Neut % (Auto) Lymph % (Auto) [place] % (Auto) Eos % (Auto) Baso % (Auto) Neut # (Auto) Lymph # (Auto) [place] # (Auto) Eos # (Auto) Baso # (Auto) ESR 18 PT INR APTT Sodium Potassium Chloride Carbon Dioxide Anion Gap BUN Creatinine Est GFR ( Amer) Est GFR (Non-Af Amer) POC Glucose (mg/dL) 179 H Random Glucose Calcium Total Bilirubin AST ALT Alkaline Phosphatase Total Protein Albumin Globulin Albumin/Globulin Ratio Triglycerides Cholesterol LDL Cholesterol Direct HDL Cholesterol Thyroxine (T4) TSH 3rd Generation Urine Color Yellow Urine Clarity Clear Urine pH 5.0 Ur Specific [place] 1.023 Urine Protein Negative Urine Glucose (UA) Neg Urine Ketones Negative Urine Blood Small Urine Nitrate Negative Urine Bilirubin Negative Urine Urobilinogen 0.2-1.0 Ur Leukocyte Esterase Trace Urine RBC (Auto) 4 H Urine Microscopic WBC 17 H Ur Squamous Epith Cells 1 08/01/18 08/01/18 08/01/18 05:25 05:30 05:30 WBC 5.8 RBC 3.82 Hgb 11.7 L Hct 35.4 MCV 92.7 MCH 30.7 MCHC 33.2 RDW 13.7 Plt Count 218 MPV Neut % (Auto) Lymph % (Auto) [place] % (Auto) Eos % (Auto) Baso % (Auto) Neut # (Auto) Lymph # (Auto) [place] # (Auto) Eos # (Auto) Baso # (Auto) ESR PT INR APTT Sodium 141 Potassium 3.9 Chloride 108 H Carbon Dioxide 24 Anion Gap 13 BUN 19 H Creatinine 0.6 L Est GFR ( Amer) > 60 Est GFR (Non-Af Amer) > 60 POC Glucose (mg/dL) 129 H Random Glucose 132 H Calcium 9.4 Total Bilirubin 0.4 AST 22 ALT 37 Alkaline Phosphatase 44 Total Protein 7.0 Albumin 3.9 Globulin 3.0 Albumin/Globulin Ratio 1.3 Triglycerides 146 Cholesterol 118 LDL Cholesterol Direct 55 HDL Cholesterol 44 Thyroxine (T4) 10.5 TSH 3rd Generation 3.21 Urine Color Urine Clarity Urine pH Ur Specific [place] Urine Protein Urine Glucose (UA) Urine Ketones Urine Blood Urine Nitrate Urine Bilirubin Urine Urobilinogen Ur Leukocyte Esterase Urine RBC (Auto) Urine Microscopic WBC Ur Squamous Epith Cells Assessment & Plan (1) Cellulitis of leg, right Status: Acute (2) Varicose veins of right lower extremity Status: Acute (3) Diabetes Status: Acute - Assessment and Plan (Free Text) Assessment: A/P- 72 year old female with multiple medical conditions including DM II and previous DVT admitted with worsening right lower extremity redness and swelling. pt. is afebrile and has normal wbc count. no signs of sepsis. would advise to r/o DVT on the LE as she is no longer on blood thinners and has h/o DVT in that leg. she also may need vascular consult to evaluate her LE . plan- keep right leg elevated. No objection to continuing with IV vanco at this time for mild LE cellulitis with underlying poor vasculature. keep vanco trough <15. advise to d/c zosyn. follow LE US result rule out DVT. all labs and imaging and chart notes reviewed. All above d/w patient and she agrees with above plan of care. Thank you for allowing me to take part in the care of this patient.
[2018-08-01] MEDS ORDERED: Albuterol-Ipratrop 3 mg / 0.5 (3 ml) UD INH SCH (11:03)
--- NOTE | 2018-08-01 11:58 | US ---
Date of service: The 08/01/2018 PROCEDURE: Right lower extremity venous duplex Doppler. HISTORY: cellulitis of R leg COMPARISON: 07/22/2018. TECHNIQUE: Common femoral, superficial femoral, popliteal and posterior tibial veins were evaluated. Flow was assessed with color Doppler, compressibility, assessment of phasic flow and augmentation response. FINDINGS: COMMON FEMORAL VEIN: Unremarkable. SUPERFICIAL FEMORAL VEIN: Unremarkable. POPLITEAL VEIN: Unremarkable. POSTERIOR TIBIAL VEIN: Unremarkable. OTHER FINDINGS: None. IMPRESSION: No evidence of deep venous thrombosis in the right lower extremity.
--- NOTE | 2018-08-01 15:40 | CP.PCM.HP ---
History of Present Illness - History of Present Illness History of Present Illness: 72 y/o F, PMHx: Multiple DVT RLE with filter( last one 2000), DM II, R TKR, B/L Breast Mastectomy 2nd to Ca on remission, Hypercholesterolemia, Asthma. On DOA, Pt was referred by her Trestle Builder to [facility], [place], for evaluation of RLE pain, described as moderate, intermittent, sharp, dull, burning, severe intensity 7:10, associated to redness and swelling in the area, onset for 1 month but gradually worsening from 9 days [employer], Pt was seen in the ED on 07/12/18 for same symptoms, and was sent home on abx Keflex but Pt continue with no improvement, Patient was seen by Trestle Builder OLIVIA and refered to [facility] for AD Worsening symptoms: Anxiety, depression. Aggravated factor: Walking, ADL's. Pt denied: Fever, chills, n/v/d, abdominal pain, urinary symptoms, CP, palpitations, SOB, cough, sick contact, recent travel out of [place]. Ext [place]: No DVT. Present on Admission - Present on Admission Any Indicators Present on Admission: Yes History of DVT/PE: Yes Review of Systems - Constitutional Constitutional: Other (negative) - EENT Eyes: Requires Corrective Lenses Ears: Other (negative) Nose/Mouth/Throat: Other (negative) - Cardiovascular Cardiovascular: Other (negative) - Respiratory Respiratory: Other (negative) - Gastrointestinal Gastrointestinal: Other (negative) - Genitourinary Genitourinary: Other (negative) - Musculoskeletal Musculoskeletal: Arthralgias, Back Pain - Integumentary Integumentary: Erythema - Neurological Neurological: Other (negative) - Psychiatric Psychiatric: Anxiety, Depression - Endocrine Endocrine: Other (negative) - Hematologic/Lymphatic Hematologic: Other (negative) Past Patient History - Past Medical History & Family History Past Medical History?: Yes Pertinent Family History: Unknown - Past Social History Smoking Status: Never Smoked Alcohol: None Drugs: Denies Home Situation {Lives}: Alone - CARDIAC Hx Cardiac Disorders: Yes Hx Hypercholesterolemia: Yes - PULMONARY Hx Respiratory Disorders: Yes Hx Asthma: Yes - NEUROLOGICAL Hx Neurological Disorder: No - HEENT Hx HEENT Problems: Yes Hx Cataracts: Yes - RENAL Hx Chronic Kidney Disease: No - ENDOCRINE/METABOLIC Hx Endocrine Disorders: Yes Hx Diabetes Mellitus Type 2: Yes - HEMATOLOGICAL/ONCOLOGICAL Hx Blood Disorders: Yes Hx Blood Transfusions: Yes Hx Blood Transfusion Reaction: No Hx Cancer: Yes (BILATERAL BREAST) - INTEGUMENTARY Hx Dermatological Problems: Yes Hx Cellulitis: Yes - MUSCULOSKELETAL/RHEUMATOLOGICAL Hx Musculoskeletal Disorders: Yes Hx Arthritis: Yes Hx Falls: Yes - GASTROINTESTINAL Hx Gastrointestinal Disorders: Yes Hx Gastritis: Yes - GENITOURINARY/GYNECOLOGICAL Hx Genitourinary Disorders: No - PSYCHIATRIC Hx Psychophysiologic Disorder: Yes Hx Anxiety: Yes Hx Depression: Yes Hx Substance Use: No - SURGICAL HISTORY Hx Surgeries: Yes Hx Cholecystectomy: Yes Hx Joint Replacement: Yes (R TKR) Hx Mastectomy: Yes (B/L L Breast CA) Hx Orthopedic Surgery: Yes (R TKR) - ANESTHESIA Hx Anesthesia: Yes Hx Anesthesia Reactions: No Hx Malignant Hyperthermia: No Meds Allergies/Adverse Reactions: Allergies Allergy/AdvReac Type Severity Reaction Status Date / Time Sulfa (Sulfonamide Allergy RASH Verified 07/31/18 15:13 Antibiotics) Physical Exam - Constitutional Appears: No Acute Distress - Head Exam Head Exam: NORMAL INSPECTION - Eye Exam Eye Exam: PERRL - ENT Exam ENT Exam: Normal Exam - Neck Exam Neck exam: Positive for: Normal Inspection - Respiratory Exam Respiratory Exam: NORMAL BREATHING PATTERN - Cardiovascular Exam Cardiovascular Exam: REGULAR RHYTHM - GI/Abdominal Exam GI & Abdominal Exam: Normal Bowel Sounds - Extremities Exam Extremities exam: Positive for: tenderness ( RLE on palpation) Additional comments: area of redness/edema distal R leg , tenderness to touch , minimal warmth, Varicose Veins. R TKR - Back Exam Back exam: NORMAL INSPECTION - Neurological Exam Neurological exam: Alert, Oriented x3 - Psychiatric Exam Psychiatric exam: Anxious, Depressed - Skin Skin Exam: Erythema (distal R leg), Warm Results - Vital Signs Recent Vital Signs: Last Vital Signs Temp 98.2 F 08/01/18 08:27 Pulse 73 08/01/18 09:31 Resp 20 08/01/18 08:27 BP 149/85 08/01/18 09:31 Pulse Ox 98 08/01/18 08:27 reviewed Ángel - Labs Result Diagrams: 08/01/18 05:30 08/01/18 05:30 Labs: Laboratory Results - last 24 hr 07/31/18 07/31/18 07/31/18 16:52 16:52 16:52 WBC 7.7 RBC 3.91 Hgb 12.2 Hct 36.2 MCV 92.7 MCH 31.2 H MCHC 33.7 RDW 13.6 Plt Count 233 MPV 8.8 Neut % (Auto) 65.3 Lymph % (Auto) 25.2 [place] % (Auto) 7.9 Eos % (Auto) 1.1 Baso % (Auto) 0.5 Neut # (Auto) 5.0 Lymph # (Auto) 1.9 [place] # (Auto) 0.6 Eos # (Auto) 0.1 Baso # (Auto) 0.0 ESR PT 11.9 INR 1.0 APTT 28.3 Sodium 142 Potassium 3.9 Chloride 106 Carbon Dioxide 28 Anion Gap 12 BUN 16 Creatinine 0.9 Est GFR ( Amer) > 60 Est GFR (Non-Af Amer) > 60 POC Glucose (mg/dL) Random Glucose 144 H Hemoglobin A1c Calcium 9.4 Total Bilirubin 0.3 AST 35 ALT 39 Alkaline Phosphatase 48 Total Protein 7.3 Albumin 4.2 Globulin 3.1 Albumin/Globulin Ratio 1.4 Triglycerides Cholesterol LDL Cholesterol Direct HDL Cholesterol 25-OH Vitamin D Total Thyroxine (T4) TSH 3rd Generation Urine Color Urine Clarity Urine pH Ur Specific [place] Urine Protein Urine Glucose (UA) Urine Ketones Urine Blood Urine Nitrate Urine Bilirubin Urine Urobilinogen Ur Leukocyte Esterase Urine RBC (Auto) Urine Microscopic WBC Ur Squamous Epith Cells 07/31/18 07/31/18 07/31/18 19:15 21:42 23:49 WBC RBC Hgb Hct MCV MCH MCHC RDW Plt Count MPV Neut % (Auto) Lymph % (Auto) [place] % (Auto) Eos % (Auto) Baso % (Auto) Neut # (Auto) Lymph # (Auto) [place] # (Auto) Eos # (Auto) Baso # (Auto) ESR 18 PT INR APTT Sodium Potassium Chloride Carbon Dioxide Anion Gap BUN Creatinine Est GFR ( Amer) Est GFR (Non-Af Amer) POC Glucose (mg/dL) 179 H Random Glucose Hemoglobin A1c Calcium Total Bilirubin AST ALT Alkaline Phosphatase Total Protein Albumin Globulin Albumin/Globulin Ratio Triglycerides Cholesterol LDL Cholesterol Direct HDL Cholesterol 25-OH Vitamin D Total Thyroxine (T4) TSH 3rd Generation Urine Color Yellow Urine Clarity Clear Urine pH 5.0 Ur Specific [place] 1.023 Urine Protein Negative Urine Glucose (UA) Neg Urine Ketones Negative Urine Blood Small Urine Nitrate Negative Urine Bilirubin Negative Urine Urobilinogen 0.2-1.0 Ur Leukocyte Esterase Trace Urine RBC (Auto) 4 H Urine Microscopic WBC 17 H Ur Squamous Epith Cells 1 08/01/18 08/01/18 08/01/18 05:25 05:30 05:30 WBC 5.8 RBC 3.82 Hgb 11.7 L Hct 35.4 MCV 92.7 MCH 30.7 MCHC 33.2 RDW 13.7 Plt Count 218 MPV Neut % (Auto) Lymph % (Auto) [place] % (Auto) Eos % (Auto) Baso % (Auto) Neut # (Auto) Lymph # (Auto) [place] # (Auto) Eos # (Auto) Baso # (Auto) ESR PT INR APTT Sodium 141 Potassium 3.9 Chloride 108 H Carbon Dioxide 24 Anion Gap 13 BUN 19 H Creatinine 0.6 L Est GFR ( Amer) > 60 Est GFR (Non-Af Amer) > 60 POC Glucose (mg/dL) 129 H Random Glucose 132 H Hemoglobin A1c Calcium 9.4 Total Bilirubin 0.4 AST 22 ALT 37 Alkaline Phosphatase 44 Total Protein 7.0 Albumin 3.9 Globulin 3.0 Albumin/Globulin Ratio 1.3 Triglycerides 146 Cholesterol 118 LDL Cholesterol Direct 55 HDL Cholesterol 44 25-OH Vitamin D Total Thyroxine (T4) 10.5 TSH 3rd Generation 3.21 Urine Color Urine Clarity Urine pH Ur Specific [place] Urine Protein Urine Glucose (UA) Urine Ketones Urine Blood Urine Nitrate Urine Bilirubin Urine Urobilinogen Ur Leukocyte Esterase Urine RBC (Auto) Urine Microscopic WBC Ur Squamous Epith Cells 08/01/18 08/01/18 08/01/18 05:30 05:30 11:19 WBC RBC Hgb Hct MCV MCH MCHC RDW Plt Count MPV Neut % (Auto) Lymph % (Auto) [place] % (Auto) Eos % (Auto) Baso % (Auto) Neut # (Auto) Lymph # (Auto) [place] # (Auto) Eos # (Auto) Baso # (Auto) ESR PT INR APTT Sodium Potassium Chloride Carbon Dioxide Anion Gap BUN Creatinine Est GFR ( Amer) Est GFR (Non-Af Amer) POC Glucose (mg/dL) 102 Random Glucose Hemoglobin A1c 6.7 H Calcium Total Bilirubin AST ALT Alkaline Phosphatase Total Protein Albumin Globulin Albumin/Globulin Ratio Triglycerides Cholesterol LDL Cholesterol Direct HDL Cholesterol 25-OH Vitamin D Total 29.0 L Thyroxine (T4) TSH 3rd Generation Urine Color Urine Clarity Urine pH Ur Specific [place] Urine Protein Urine Glucose (UA) Urine Ketones Urine Blood Urine Nitrate Urine Bilirubin Urine Urobilinogen Ur Leukocyte Esterase Urine RBC (Auto) Urine Microscopic WBC Ur Squamous Epith Cells reviewed J.P. - Imaging and Cardiology Venous US Status: Report reviewed by me (Ángel) Assessment & Plan (1) Cellulitis of right lower extremity Status: Acute Priority: High (2) Varicose veins of lower extremity Status: Chronic Priority: High (3) DM II (diabetes mellitus, type II), controlled Status: Chronic Priority: Medium (4) History of deep vein thrombosis (DVT) of lower extremity Status: Chronic Priority: Medium Comment: Right (5) History of inferior vena caval filter placement Status: Chronic Priority: Medium (6) HTN (hypertension) Status: Chronic Priority: Medium - Assessment and Plan (Free Text) Plan: F/U Blood C-S, U C-S, Vanco, ASA, Januvia, Klonopin, Prozac and rest of Tx, ID, Podiatry consult. - Date & Time Date: 08/01/18 Time: 10:40
[2018-08-01] MEDS: Amylase/Lipase/Protease 5,000 Units ECC PO SCH (17:38)
[2018-08-02] MEDS: Albuterol-Ipratrop 3 mg / 0.5 (3 ml) UD INH SCH ×2 (08:00→19:05)
[2018-08-02] MEDS: Enoxaparin 40 mg Syringe SC SCH (09:01)
[2018-08-02] MEDS: Amylase/Lipase/Protease 5,000 Units ECC PO SCH ×2 (09:02→16:23)
[2018-08-02] MEDS: Pantoprazole 40 mg EC Tab PO SCH (09:03)
--- NOTE | 2018-08-02 12:33 | CP.PCM.PN ---
Subjective - Date & Time of Evaluation Date of Evaluation: 08/02/18 Time of Evaluation: 11:50 - Subjective Subjective: F/U Cellulites RLE R leg pain improved. Objective - Vital Signs/Intake and Output Vital Signs (last 24 hours): Temp Pulse Resp BP Pulse Ox 97.9 F 63 20 148/82 94 L 08/02/18 08:19 08/02/18 09:03 08/02/18 08:19 08/02/18 09:03 08/02/18 08:19 - Medications Medications: Current Medications Acetaminophen (Tylenol 325mg Tab) 650 mg PO Q4 PRN PRN Reason: Pain, moderate (4-7) Last Admin: 08/01/18 18:36 Dose: 650 mg Albuterol/Ipratropium (Duoneb 3 Mg/0.5 Mg (3 Ml) Ud) 3 ml INH RBID [facility] Amylase (Pancrease 74028 U-5000 [id number] U) 25,000 unit PO BIDWM [facility] Last Admin: 08/02/18 09:02 Dose: 25,000 unit Aspirin (Ecotrin) 81 mg PO DAILY [facility] Last Admin: 08/02/18 09:01 Dose: 81 mg Atenolol (Tenormin) 25 mg PO DAILY [facility] Last Admin: 08/02/18 09:03 Dose: 25 mg Calcium Carbonate (Oscal) 500 mg PO DAILY [facility] Last Admin: 08/02/18 09:02 Dose: 500 mg Clonazepam (Klonopin) 0.5 mg PO HS [facility] Last Admin: 08/01/18 21:00 Dose: 0.5 mg Donepezil HCl (Aricept) 10 mg PO HS [facility] Last Admin: 08/01/18 21:00 Dose: 10 mg Enoxaparin Sodium (Lovenox) 40 mg SC DAILY [facility]; Protocol Last Admin: 08/02/18 09:01 Dose: 40 mg Ergocalciferol (Drisdol 50,000 Intl Units Cap) 1 cap PO SUN [facility] Fluoxetine HCl (Prozac) 20 mg PO QPM [facility] Last Admin: 08/01/18 17:40 Dose: 20 mg Vancomycin HCl 1 gm/ Sodium (Chloride) 250 mls @ 166.667 mls/hr IVPB Q12 [facility]; Protocol Last Admin: 08/02/18 09:03 Dose: 166.667 mls/hr Memantine (Namenda) 10 mg PO Q12 [facility] Last Admin: 08/02/18 09:02 Dose: 10 mg Pantoprazole Sodium (Protonix Ec Tab) 40 mg PO DAILY [facility] Last Admin: 08/02/18 09:03 Dose: 40 mg Sitagliptin Phosphate (Januvia) 100 mg PO DAILY [facility] Last Admin: 08/02/18 09:02 Dose: 100 mg - Labs Labs: 08/01/18 05:30 08/01/18 05:30 PT 11.9 Seconds (9.8-13.1) 07/31/18 16:52 INR 1.0 07/31/18 16:52 APTT 28.3 Seconds (25.6-37.1) 07/31/18 16:52 - Constitutional Appears: No Acute Distress - Head Exam Head Exam: NORMAL INSPECTION - Eye Exam Eye Exam: PERRL - ENT Exam ENT Exam: Normal Exam - Neck Exam Neck Exam: Normal Inspection - Respiratory Exam Respiratory Exam: NORMAL BREATHING PATTERN - Cardiovascular Exam Cardiovascular Exam: REGULAR RHYTHM - GI/Abdominal Exam GI & Abdominal Exam: Soft, Normal Bowel Sounds - Extremities Exam Extremities Exam: Tenderness (RLE on palpation) Additional comments: decreased redness R posterior lower leg, sensitive to touch, Varicose veins, R TKR - Back Exam Back Exam: NORMAL INSPECTION - Neurological Exam Neurological Exam: Alert, Oriented x3 - Psychiatric Exam Psychiatric exam: Anxious, Depressed - Skin Skin Exam: Erythema, Warm Assessment and Plan (1) Cellulitis of right lower extremity Status: Acute (2) Varicose veins of lower extremity Status: Chronic (3) DM II (diabetes mellitus, type II), controlled Status: Chronic - Assessment and Plan (Free Text) Plan: Continue Vanco, Lovenox and rest of of Tx.
--- NOTE | 2018-08-02 16:02 | RAD ---
Date of service: 08/02/2018 HISTORY: HTN, COPD COMPARISON: 03/26/2011. TECHNIQUE: Chest PA and lateral views FINDINGS: LUNGS: No active pulmonary disease. PLEURA: No significant pleural effusion identified. No pneumothorax apparent. CARDIOVASCULAR: No aortic atherosclerotic calcification present. No radiographic findings to suggest acute or significant cardiovascular disease. No pulmonary vascular congestion. OSSEOUS STRUCTURES: No significant abnormalities. VISUALIZED UPPER ABDOMEN: Normal. OTHER FINDINGS: Prior left mastectomy and axillary node dissection. IMPRESSION: No active disease. No significant interval change compared to the prior examination(s).
--- NOTE | 2018-08-02 22:44 | CARD ---
APPROVED REPORT Date of service: 08/02/2018 EKG Measurement Heart [id number] MD [id number] <Conclusion> Normal sinus rhythm Normal ECG
--- NOTE | 2018-08-02 22:50 | CARD ---
APPROVED REPORT Date of service: 08/02/2018 EXAM: Two-dimensional and M-mode echocardiogram with Doppler and color Doppler. Other Information Quality : GoodRhythm : NSR INDICATION Hypertension/HCVD COPD 2D DIMENSIONS IVSd1.36 (0.7-1.1cm)LVDd3.73 (3.9-5.9cm) LVOT Diameter1.92 (1.8-2.4cm)PWd0.99 (0.7-1.1cm) IVSs1.35 (0.8-1.2cm)LVDs2.67 (2.5-4.0cm) FS (%) 28.4 %PWs1.56 (0.8-1.2cm) M-Mode DIMENSIONS Left Atrium (MM)3.20 (2.5-4.0cm)IVSd1.05 (0.7-1.1cm) Aortic Root3.12 (2.2-3.7cm)LVDd5.07 (4.0-5.6cm) Aortic Cusp Exc.1.90 (1.5-2.0cm)PWd1.10 (0.7-1.1cm) IVSs1.60 cmFS (%) 41 % LVDs2.98 (2.0-3.8cm)PWs1.52 cm Aortic Valve AoV Peak Zwujcgtx155.5cm/sAoV VTI27.4cmAO Peak GR.7mmHg LVOT Peak Ugoqmrrf10.4cm/sLVOT VTI21.02cmAO Mean GR.4mmHg JUNG (VMAX)1.94eg3OOD (VTI)1.29cm2 Mitral Valve MV E Mwgobiul69.1cm/sMV DECEL [id number] A Mrektqkq35.7cm/s MV TSV60aiC/A ratio1.1MVA (PHT)3.29cm2 TDI Lateral E' Peak V7.99cm/sMedial E' Peak V5.46cm/sE/Lateral E'8.3 E/Medial E'12.1 LEFT VENTRICLE The left ventricle is normal size. There is borderline to mild concentric left ventricular hypertrophy. The left ventricular systolic function is normal. The estimated ejection fraction is 55-60% No regional wall motion abnormalities noted.. Transmitral Doppler flow pattern is Grade I-abnormal relaxation pattern. No left ventricle thrombus noted on this study. There is no ventricular septal defect visualized. There is no left ventricular aneurysm. There is no mass noted in the left ventricle. RIGHT VENTRICLE The right ventricle is normal size. There is normal right ventricular wall thickness. The right ventricular systolic function is normal. ATRIA The left atrium size is normal. The right atrium size is normal. The interatrial septum is intact with no evidence for an atrial septal defect. AORTIC VALVE The aortic valve is normal in structure. No aortic regurgitation is present. There is no aortic valvular stenosis. There is no aortic valvular vegetation. MITRAL VALVE The mitral valve is normal in structure. There is no evidence of mitral valve prolapse. There is no mitral valve stenosis. There is trace mitral valve regurgitation noted. TRICUSPID VALVE The tricuspid valve is normal in structure. There is trace tricuspid valve regurgitation noted. There is no tricuspid valve prolapse or vegetation. There is no tricuspid valve stenosis. PULMONIC VALVE The pulmonary valve is normal in structure. There is no pulmonic valvular regurgitation. There is no pulmonic valvular stenosis. GREAT VESSELS The aortic root is normal in size. The ascending aorta is normal in size. The pulmonary artery is normal. The IVC is not visualized. PERICARDIAL EFFUSION There is no pericardial effusion. There is no pleural effusion. <Conclusion> There is borderline to mild concentric left ventricular hypertrophy. The estimated ejection fraction is 55-60% Transmitral Doppler flow pattern is Grade I-abnormal relaxation pattern. There is trace tricuspid valve regurgitation noted. The IVC is not visualized.
[2018-08-03 07:46] LABS: HEMOGLOBIN 12.7 g/dL (12.0-16.0); MEAN CELL VOLUME 92.8 fl (81.0-99.0); MEAN CORPUSCULAR HEMOGLOBIN 31.3 pg (27.0-31.0); MEAN CORPUSCULAR HGB CONC 33.7 g/dL (33.0-37.0); RBC 4.06 Mil/uL (3.80-5.20); RED CELL DISTRIBUTION WIDTH 13.8 % (11.5-14.5); WHITE BLOOD COUNT 7.3 K/uL (4.8-10.8)
[2018-08-03] MEDS: Albuterol-Ipratrop 3 mg / 0.5 (3 ml) UD INH SCH (07:57)
[2018-08-03 08:10] LABS: BLOOD UREA NITROGEN 22 mg/dl (7-17); CALCIUM 9.8 mg/dL (8.4-10.2); GFR NON-AFRICAN AMERICAN > 60
[2018-08-03] MEDS: Enoxaparin 40 mg Syringe SC SCH (08:34)
[2018-08-03] MEDS: Amylase/Lipase/Protease 5,000 Units ECC PO SCH ×2 (08:36→16:40)
[2018-08-03] MEDS: Pantoprazole 40 mg EC Tab PO SCH (08:36)
--- NOTE | 2018-08-03 10:56 | CP.PCM.PN ---
Subjective - Date & Time of Evaluation Date of Evaluation: 08/03/18 Time of Evaluation: 10:54 - Subjective Subjective: Podiatry progress note - Dr. Mohamud 72F seen and evaluated at bedside this AM with Dr. Mohamud. Resting comfortably. States the redness in her right leg has improved. States she still has pain upon touching of the area. Denies n/v/f/c today and has no other acute complaints. Objective - Vital Signs/Intake and Output Vital Signs (last 24 hours): Temp Pulse Resp BP Pulse Ox 98.3 F 72 20 153/83 H 97 08/03/18 07:49 08/03/18 08:37 08/03/18 07:49 08/03/18 08:37 08/03/18 07:49 - Medications Medications: Current Medications Acetaminophen (Tylenol 325mg Tab) 650 mg PO Q4 PRN PRN Reason: Pain, moderate (4-7) Last Admin: 08/01/18 18:36 Dose: 650 mg Albuterol/Ipratropium (Duoneb 3 Mg/0.5 Mg (3 Ml) Ud) 3 ml INH RBID [facility] Last Admin: 08/03/18 07:57 Dose: 3 ml Amylase (Pancrease 27613 U-5000 U-[id number] U) 25,000 unit PO BIDWM [facility] Last Admin: 08/03/18 08:36 Dose: 25,000 unit Aspirin (Ecotrin) 81 mg PO DAILY [facility] Last Admin: 08/03/18 08:33 Dose: 81 mg Atenolol (Tenormin) 25 mg PO DAILY [facility] Last Admin: 08/03/18 08:37 Dose: 25 mg Calcium Carbonate (Oscal) 500 mg PO DAILY [facility] Last Admin: 08/03/18 08:35 Dose: 500 mg Clonazepam (Klonopin) 0.5 mg PO HS [facility] Last Admin: 08/02/18 21:00 Dose: 0.5 mg Donepezil HCl (Aricept) 10 mg PO HS [facility] Last Admin: 08/02/18 21:00 Dose: 10 mg Enoxaparin Sodium (Lovenox) 40 mg SC DAILY [facility]; Protocol Last Admin: 08/03/18 08:34 Dose: 40 mg Ergocalciferol (Drisdol 50,000 Intl Units Cap) 1 cap PO SUN [facility] Fluoxetine HCl (Prozac) 20 mg PO QPM [facility] Last Admin: 08/02/18 17:39 Dose: 20 mg Vancomycin HCl 1 gm/ Sodium (Chloride) 250 mls @ 166.667 mls/hr IVPB Q12 [facility]; Protocol Last Admin: 08/03/18 08:41 Dose: 166.667 mls/hr Memantine (Namenda) 10 mg PO Q12 [facility] Last Admin: 08/03/18 08:35 Dose: 10 mg Pantoprazole Sodium (Protonix Ec Tab) 40 mg PO DAILY [facility] Last Admin: 08/03/18 08:36 Dose: 40 mg Sitagliptin Phosphate (Januvia) 100 mg PO DAILY [facility] Last Admin: 08/03/18 08:34 Dose: 100 mg - Labs Labs: 08/03/18 06:31 08/03/18 06:31 PT 11.9 Seconds (9.8-13.1) 07/31/18 16:52 INR 1.0 07/31/18 16:52 APTT 28.3 Seconds (25.6-37.1) 07/31/18 16:52 - Constitutional Appears: Non-toxic - Head Exam Head Exam: ATRAUMATIC - Extremities Exam Additional comments: RLE focused exam VASC: DP and PT pulses palpable; cap refill <3 seconds; mild edema noted to the LE; pedal hair growth absent DERM: no open lesions or wounds present; erythema present to the posterior aspect of the right leg and ankle, improved; no streaking noted ORTHO: mild pain on palpation at the erythematous region NEURO: gross and protective sensation intact - Neurological Exam Neurological Exam: Alert, Awake, Oriented x3 - Psychiatric Exam Psychiatric exam: Normal Affect Assessment and Plan - Assessment and Plan (Free Text) Assessment: 72F with RLE cellulitis vs venous insufficiency Plan: Patient seen and evaluated with Dr. Mohamud Afebrile, absent leukocytosis Negative DVT Blood cx - no growth KALI/PVR ordered - pending Vascular consult - Dr. Mackenzie - Stable for outpatient vascular workup Stable for d/c from podiatry standpoint, f/u with Dr. Mohamud in office as outpatient Continue to elevate leg with pillow at home
--- NOTE | 2018-08-03 13:17 | CP.PCM.PN ---
Subjective - Date & Time of Evaluation Date of Evaluation: 08/03/18 Time of Evaluation: 13:17 - Subjective Subjective: ID Note- Pt. seen and examined today. denies any complaints other than the fact that her legs get swelling when they are not elevated. the redness has improved . denies any fever or chills. Objective - Vital Signs/Intake and Output Vital Signs (last 24 hours): Temp Pulse Resp BP Pulse Ox 98.3 F 72 20 153/83 H 97 08/03/18 07:49 08/03/18 08:37 08/03/18 07:49 08/03/18 08:37 08/03/18 07:49 - Medications Medications: Current Medications Acetaminophen (Tylenol 325mg Tab) 650 mg PO Q4 PRN PRN Reason: Pain, moderate (4-7) Last Admin: 08/01/18 18:36 Dose: 650 mg Albuterol/Ipratropium (Duoneb 3 Mg/0.5 Mg (3 Ml) Ud) 3 ml INH RBID [facility] Last Admin: 08/03/18 07:57 Dose: 3 ml Amylase (Pancrease 58041 U-5000 U-37330 U) 25,000 unit PO BIDWM [facility] Last Admin: 08/03/18 08:36 Dose: 25,000 unit Aspirin (Ecotrin) 81 mg PO DAILY [facility] Last Admin: 08/03/18 08:33 Dose: 81 mg Atenolol (Tenormin) 25 mg PO DAILY [facility] Last Admin: 08/03/18 08:37 Dose: 25 mg Calcium Carbonate (Oscal) 500 mg PO DAILY [facility] Last Admin: 08/03/18 08:35 Dose: 500 mg Clonazepam (Klonopin) 0.5 mg PO HS [facility] Last Admin: 08/02/18 21:00 Dose: 0.5 mg Donepezil HCl (Aricept) 10 mg PO HS [facility] Last Admin: 08/02/18 21:00 Dose: 10 mg Enoxaparin Sodium (Lovenox) 40 mg SC DAILY [facility]; Protocol Last Admin: 08/03/18 08:34 Dose: 40 mg Ergocalciferol (Drisdol 50,000 Intl Units Cap) 1 cap PO SUN [facility] Fluoxetine HCl (Prozac) 20 mg PO QPM [facility] Last Admin: 08/02/18 17:39 Dose: 20 mg Vancomycin HCl 1 gm/ Sodium (Chloride) 250 mls @ 166.667 mls/hr IVPB Q12 [facility]; Protocol Last Admin: 08/03/18 08:41 Dose: 166.667 mls/hr Memantine (Namenda) 10 mg PO Q12 [facility] Last Admin: 08/03/18 08:35 Dose: 10 mg Pantoprazole Sodium (Protonix Ec Tab) 40 mg PO DAILY [facility] Last Admin: 08/03/18 08:36 Dose: 40 mg Sitagliptin Phosphate (Januvia) 100 mg PO DAILY [facility] Last Admin: 08/03/18 08:34 Dose: 100 mg - Labs Labs: - Additional Findings Additional findings: - Constitutional Appears: No Acute Distress - Head Exam Head Exam: ATRAUMATIC - Eye Exam Eye Exam: EOMI, PERRL - ENT Exam ENT Exam: Normal Oropharynx - Neck Exam Neck exam: Positive for: Full Rom - Respiratory Exam Respiratory Exam: Clear to Auscultation Bilateral, NORMAL BREATHING PATTERN - Cardiovascular Exam Cardiovascular Exam: RRR, +S1, +S2 - GI/Abdominal Exam GI & Abdominal Exam: Normal Bowel Sounds, Soft Additional comments: NT, ND - Extremities Exam Additional comments: Right posterior lower leg with demarcated area of light pink almost resolved, no warmth to touch, no fluctuation multiple varicose veins throughout - Neurological Exam Neurological exam: Alert, Oriented x 3 Laboratory Results - last 72 hr 07/31/18 07/31/18 07/31/18 19:15 21:42 23:49 WBC RBC Hgb Hct MCV MCH MCHC RDW Plt Count ESR 18 Sodium Potassium Chloride Carbon Dioxide Anion Gap BUN Creatinine Est GFR ( Amer) Est GFR (Non-Af Amer) POC Glucose (mg/dL) 179 H Random Glucose Hemoglobin A1c Calcium Total Bilirubin AST ALT Alkaline Phosphatase Total Protein Albumin Globulin Albumin/Globulin Ratio Triglycerides Cholesterol LDL Cholesterol Direct HDL Cholesterol 25-OH Vitamin D Total Thyroxine (T4) TSH 3rd Generation Urine Color Yellow Urine Clarity Clear Urine pH 5.0 Ur Specific [place] 1.023 Urine Protein Negative Urine Glucose (UA) Neg Urine Ketones Negative Urine Blood Small Urine Nitrate Negative Urine Bilirubin Negative Urine Urobilinogen 0.2-1.0 Ur Leukocyte Esterase Trace Urine RBC (Auto) 4 H Urine Microscopic WBC 17 H Ur Squamous Epith Cells 1 Urine Creatinine Urine Microalbumin Microalb/Creat Ratio 08/01/18 08/01/18 08/01/18 05:25 05:30 05:30 WBC 5.8 RBC 3.82 Hgb 11.7 L Hct 35.4 MCV 92.7 MCH 30.7 MCHC 33.2 RDW 13.7 Plt Count 218 ESR Sodium 141 Potassium 3.9 Chloride 108 H Carbon Dioxide 24 Anion Gap 13 BUN 19 H Creatinine 0.6 L Est GFR ( Amer) > 60 Est GFR (Non-Af Amer) > 60 POC Glucose (mg/dL) 129 H Random Glucose 132 H Hemoglobin A1c Calcium 9.4 Total Bilirubin 0.4 AST 22 ALT 37 Alkaline Phosphatase 44 Total Protein 7.0 Albumin 3.9 Globulin 3.0 Albumin/Globulin Ratio 1.3 Triglycerides 146 Cholesterol 118 LDL Cholesterol Direct 55 HDL Cholesterol 44 25-OH Vitamin D Total Thyroxine (T4) 10.5 TSH 3rd Generation 3.21 Urine Color Urine Clarity Urine pH Ur Specific [place] Urine Protein Urine Glucose (UA) Urine Ketones Urine Blood Urine Nitrate Urine Bilirubin Urine Urobilinogen Ur Leukocyte Esterase Urine RBC (Auto) Urine Microscopic WBC Ur Squamous Epith Cells Urine Creatinine Urine Microalbumin Microalb/Creat Ratio 08/01/18 08/01/18 08/01/18 05:30 05:30 08:09 WBC RBC Hgb Hct MCV MCH MCHC RDW Plt Count ESR Sodium Potassium Chloride Carbon Dioxide Anion Gap BUN Creatinine Est GFR ( Amer) Est GFR (Non-Af Amer) POC Glucose (mg/dL) Random Glucose Hemoglobin A1c 6.7 H Calcium Total Bilirubin AST ALT Alkaline Phosphatase Total Protein Albumin Globulin Albumin/Globulin Ratio Triglycerides Cholesterol LDL Cholesterol Direct HDL Cholesterol 25-OH Vitamin D Total 29.0 L Thyroxine (T4) TSH 3rd Generation Urine Color Urine Clarity Urine pH Ur Specific [place] Urine Protein Urine Glucose (UA) Urine Ketones Urine Blood Urine Nitrate Urine Bilirubin Urine Urobilinogen Ur Leukocyte Esterase Urine RBC (Auto) Urine Microscopic WBC Ur Squamous Epith Cells Urine Creatinine 82 Urine Microalbumin 0.5 Microalb/Creat Ratio 6 08/01/18 08/01/18 08/01/18 11:19 16:02 21:31 WBC RBC Hgb Hct MCV MCH MCHC RDW Plt Count ESR Sodium Potassium Chloride Carbon Dioxide Anion Gap BUN Creatinine Est GFR ( Amer) Est GFR (Non-Af Amer) POC Glucose (mg/dL) 102 99 121 H Random Glucose Hemoglobin A1c Calcium Total Bilirubin AST ALT Alkaline Phosphatase Total Protein Albumin Globulin Albumin/Globulin Ratio Triglycerides Cholesterol LDL Cholesterol Direct HDL Cholesterol 25-OH Vitamin D Total Thyroxine (T4) TSH 3rd Generation Urine Color Urine Clarity Urine pH Ur Specific [place] Urine Protein Urine Glucose (UA) Urine Ketones Urine Blood Urine Nitrate Urine Bilirubin Urine Urobilinogen Ur Leukocyte Esterase Urine RBC (Auto) Urine Microscopic WBC Ur Squamous Epith Cells Urine Creatinine Urine Microalbumin Microalb/Creat Ratio 08/02/18 08/02/18 08/02/18 05:05 10:43 16:02 WBC RBC Hgb Hct MCV MCH MCHC RDW Plt Count ESR Sodium Potassium Chloride Carbon Dioxide Anion Gap BUN Creatinine Est GFR ( Amer) Est GFR (Non-Af Amer) POC Glucose (mg/dL) 139 H 183 H 138 H Random Glucose Hemoglobin A1c Calcium Total Bilirubin AST ALT Alkaline Phosphatase Total Protein Albumin Globulin Albumin/Globulin Ratio Triglycerides Cholesterol LDL Cholesterol Direct HDL Cholesterol 25-OH Vitamin D Total Thyroxine (T4) TSH 3rd Generation Urine Color Urine Clarity Urine pH Ur Specific [place] Urine Protein Urine Glucose (UA) Urine Ketones Urine Blood Urine Nitrate Urine Bilirubin Urine Urobilinogen Ur Leukocyte Esterase Urine RBC (Auto) Urine Microscopic WBC Ur Squamous Epith Cells Urine Creatinine Urine Microalbumin Microalb/Creat Ratio 08/02/18 08/03/18 08/03/18 21:09 05:47 06:31 WBC 7.3 RBC 4.06 Hgb 12.7 Hct 37.7 MCV 92.8 MCH 31.3 H MCHC 33.7 RDW 13.8 Plt Count 243 ESR Sodium Potassium Chloride Carbon Dioxide Anion Gap BUN Creatinine Est GFR ( Amer) Est GFR (Non-Af Amer) POC Glucose (mg/dL) 124 H 126 H Random Glucose Hemoglobin A1c Calcium Total Bilirubin AST ALT Alkaline Phosphatase Total Protein Albumin Globulin Albumin/Globulin Ratio Triglycerides Cholesterol LDL Cholesterol Direct HDL Cholesterol 25-OH Vitamin D Total Thyroxine (T4) TSH 3rd Generation Urine Color Urine Clarity Urine pH Ur Specific [place] Urine Protein Urine Glucose (UA) Urine Ketones Urine Blood Urine Nitrate Urine Bilirubin Urine Urobilinogen Ur Leukocyte Esterase Urine RBC (Auto) Urine Microscopic WBC Ur Squamous Epith Cells Urine Creatinine Urine Microalbumin Microalb/Creat Ratio 08/03/18 08/03/18 08/03/18 06:31 10:41 15:39 WBC RBC Hgb Hct MCV MCH MCHC RDW Plt Count ESR Sodium 140 Potassium 4.1 Chloride 103 Carbon Dioxide 26 Anion Gap 15 BUN 22 H Creatinine 0.6 L Est GFR ( Amer) > 60 Est GFR (Non-Af Amer) > 60 POC Glucose (mg/dL) 154 H 131 H Random Glucose 126 H Hemoglobin A1c Calcium 9.8 Total Bilirubin AST ALT Alkaline Phosphatase Total Protein Albumin Globulin Albumin/Globulin Ratio Triglycerides Cholesterol LDL Cholesterol Direct HDL Cholesterol 25-OH Vitamin D Total Thyroxine (T4) TSH 3rd Generation Urine Color Urine Clarity Urine pH Ur Specific [place] Urine Protein Urine Glucose (UA) Urine Ketones Urine Blood Urine Nitrate Urine Bilirubin Urine Urobilinogen Ur Leukocyte Esterase Urine RBC (Auto) Urine Microscopic WBC Ur Squamous Epith Cells Urine Creatinine Urine Microalbumin Microalb/Creat Ratio Microbiology 07/31/18 16:44 Blood-Venous Blood Culture - Preliminary NO GROWTH AFTER 3 DAYS 07/31/18 08:09 Urine Random Urine Culture - Final No Growth (<1,000 CFU/ML) Assessment and Plan (1) Cellulitis of leg, right Status: Acute (2) Varicose veins of right lower extremity Status: Acute (3) Diabetes Status: Acute - Assessment and Plan (Free Text) Assessment: A/P- 72 year old female with multiple medical conditions including DM II and previous DVT admitted with worsening right lower extremity redness and swelling. pt. is afebrile and has normal wbc count. no signs of sepsis. blood cx- neg x 2 RLE US- no DVT as per report. plan- has completed 3 days of IV vancomycin. advise to d/c abx tomm. vascular evaluation of the LE.
--- NOTE | 2018-08-03 14:23 | CP.PCM.PN ---
Subjective - Date & Time of Evaluation Date of Evaluation: 08/03/18 Time of Evaluation: 10:10 - Subjective Subjective: F/U Cellulitis RLE Minimal pain in R leg distal area with less redness. Objective - Vital Signs/Intake and Output Vital Signs (last 24 hours): Temp Pulse Resp BP Pulse Ox 98.3 F 72 20 153/83 H 97 08/03/18 07:49 08/03/18 08:37 08/03/18 07:49 08/03/18 08:37 08/03/18 07:49 - Medications Medications: Current Medications Acetaminophen (Tylenol 325mg Tab) 650 mg PO Q4 PRN PRN Reason: Pain, moderate (4-7) Last Admin: 08/01/18 18:36 Dose: 650 mg Amylase (Pancrease 01500 U-5000 U-51908 U) 25,000 unit PO BIDWM [facility] Last Admin: 08/03/18 08:36 Dose: 25,000 unit Aspirin (Ecotrin) 81 mg PO DAILY [facility] Last Admin: 08/03/18 08:33 Dose: 81 mg Atenolol (Tenormin) 25 mg PO DAILY [facility] Last Admin: 08/03/18 08:37 Dose: 25 mg Calcium Carbonate (Oscal) 500 mg PO DAILY [facility] Last Admin: 08/03/18 08:35 Dose: 500 mg Clonazepam (Klonopin) 0.5 mg PO HS [facility] Last Admin: 08/02/18 21:00 Dose: 0.5 mg Donepezil HCl (Aricept) 10 mg PO HS [facility] Last Admin: 08/02/18 21:00 Dose: 10 mg Enoxaparin Sodium (Lovenox) 40 mg SC DAILY [facility]; Protocol Last Admin: 08/03/18 08:34 Dose: 40 mg Ergocalciferol (Drisdol 50,000 Intl Units Cap) 1 cap PO SUN [facility] Fluoxetine HCl (Prozac) 20 mg PO QPM [facility] Last Admin: 08/02/18 17:39 Dose: 20 mg Vancomycin HCl 1 gm/ Sodium (Chloride) 250 mls @ 166.667 mls/hr IVPB Q12 [facility]; Protocol Last Admin: 08/03/18 08:41 Dose: 166.667 mls/hr Memantine (Namenda) 10 mg PO Q12 [facility] Last Admin: 04/04/19 08:35 Dose: 10 mg Pantoprazole Sodium (Protonix Ec Tab) 40 mg PO DAILY [facility] Last Admin: 08/03/18 08:36 Dose: 40 mg Sitagliptin Phosphate (Januvia) 100 mg PO DAILY [facility] Last Admin: 08/03/18 08:34 Dose: 100 mg - Labs Labs: 08/03/18 06:31 08/03/18 06:31 PT 11.9 Seconds (9.8-13.1) 07/31/18 16:52 INR 1.0 07/31/18 16:52 APTT 28.3 Seconds (25.6-37.1) 07/31/18 16:52 - Constitutional Appears: No Acute Distress - Head Exam Head Exam: NORMAL INSPECTION - Eye Exam Eye Exam: PERRL - ENT Exam ENT Exam: Normal Exam - Neck Exam Neck Exam: Normal Inspection - Respiratory Exam Respiratory Exam: NORMAL BREATHING PATTERN - Cardiovascular Exam Cardiovascular Exam: REGULAR RHYTHM - GI/Abdominal Exam GI & Abdominal Exam: Soft, Normal Bowel Sounds - Extremities Exam Extremities Exam: Tenderness (R LE on palpation) Additional comments: decreased redness R posterior lower leg, varicose veins, R TKR - Back Exam Back Exam: NORMAL INSPECTION - Neurological Exam Neurological Exam: Alert, Awake, Oriented x3 - Psychiatric Exam Psychiatric exam: Anxious, Depressed - Skin Skin Exam: Erythema, Warm Assessment and Plan (1) Cellulitis of right lower extremity Status: Acute (2) Varicose veins of lower extremity Status: Chronic (3) DM II (diabetes mellitus, type II), controlled Status: Chronic (4) History of deep vein thrombosis (DVT) of lower extremity Status: Chronic (5) History of inferior vena caval filter placement Status: Chronic (6) HTN (hypertension) Status: Chronic - Assessment and Plan (Free Text) Plan: Continue Vanco, Lovenox, ASA and rest of Tx.
--- NOTE | 2018-08-03 18:14 | CP.PCM.CON ---
History of Present Illness - History of Present Illness History of Present Illness: ASKED TO SEE PT BY DR MASON [employer] [facility] [facility]. 72 yo female admitted with rle edema. she has a hx of r tkr many years ago, afterwhich she developed dvt. She also had dvt prior to that when she had mastectomy for breast ca. About 3 weeks ago pt developed rle edema redness and pain. dopplers were negative for dvt. she was started on abx for cellulitis and her edema, pain and erythema has improved greatly. no cp or sob. no palp or orthopnea. no ji. currently rle is warm with trace edema, no erythema. LLE is normal. pulses intact b/l Review of Systems - Constitutional Constitutional: As Per HPI. absent: Anorexia, Chills, Daytime Sleepiness, Excessive Sweating, Fatigue, Fever, Frequent Falls, Headache, Increased Appetite, Lethargy, Malaise, Night Sweats, Snoring, Sleep Apnea, Weight Gain, Weight Loss, Weakness, Other - EENT Eyes: As Per HPI. absent: Blind Spots, Blurred Vision, Change in Vision, Decreased Night Vision, Diplopia, Discharge, Dry Eye, Exophthalmos, Floaters, Irritation, Itchy Eyes, Loss of Peripheral Vision, Pain, Photophobia, Requires Corrective Lenses, Sees Flashes, Spots in Vision, Tunnel Vision, Other Visual Disturbances, Loss of Vision, Other Ears: As Per HPI. absent: Decreased Hearing, Ear Discharge, Ear Pain, Tinnitus, Abnormal Hearing, Disequilibrium, Dizziness, Other Nose/Mouth/Throat: As Per HPI. absent: Epistaxis, Nasal Congestion, Nasal Discharge, Nasal Obstruction, Nasal Trauma, Nose Pain, Post Nasal Drip, Sinus Pain, Sinus Pressure, Bleeding Gums, Change in Voice, Dental Pain, Dry Mouth, Dysphagia, Halitosis, Hoarsness, Lip Swelling, Mouth Lesions, Mouth Pain, Odynophagia, Sore Throat, Throat Swelling, Tongue Swelling, Facial Pain, Neck Pain, Neck Mass, Other - Breasts Breasts: As Per HPI. absent: Change in Shape, Mass, Pain, Nipple Discharge, Nipple Inversion, Skin Changes, Swelling, Other - Cardiovascular Cardiovascular: As Per HPI, Leg Edema. absent: Acrocyanosis, Chest Pain, Chest Pain at Rest, Chest Pain with Activity, Claudication, Diaphoresis, Dyspnea, Dyspnea on Exertion, Edema, Irregular Heart Rhythm, Pain Radiating to Arm/Neck/Jaw, Leg Ulcers, Lightheadedness, Orthopnea, Palpitations, Paroxysmal Nocturnal Dyspnea, Pedal Edema, Radiating Pain, Rapid Heart Rate, Slow Heart Rate, Syncope, Other - Respiratory Respiratory: As Per HPI. absent: Cough, Dyspnea, Hemoptysis, Dyspnea on Exertion, Wheezing, Snoring, Stridor, Pain on Inspiration, Chest Congestion, Excessive Mucous Production, Change in Mucous Color, Pain with Coughing, Other - Gastrointestinal Gastrointestinal: As Per HPI. absent: Abdominal Pain, Belching, Bloating, Change in Bowel Habits, Change in Stool Character, Coffee Ground Emesis, Constipation, Cramping, Diarrhea, Dyspepsia, Dysphagia, Early Satiety, Excessive Flatus, Fecal Incontinence, Heartburn, Hematemesis, Hematochezia, Loose Stools, Melena, Nausea, Odynophagia, Temesmus, Vomiting, Other - Genitourinary Genitourinary: As Per HPI. absent: Change in Urinary Stream, Difficulty Urinating, Dysuria, Flank Pain, Hematuria, Pyuria, Nocturia, Urinary Incontinence, Urinary Frequency, Urinary Hesitance, Urinary Urgency, Voiding Freq/Small Amts, Freq UTI, Hx Renal/Bladder Calculi, Hx /Renal Surgery, Bladder Distension, Other - Reproductive: Female Reproductive:Female: As Per HPI. absent: Amenorrhea, Amenorrhea/ Control, Currently Menstual, Cycle <21 Days, Cycle >35 Days, Cycle Variable, Menses 1-7 Days, Menses >/= 8 Days, Menses Variable, Cycle > 4 Weeks Between, No Menses for 6 Months, Heavy Menses, Light Menses, Normal Menses, Spotting Between Cycles, S/P Hysterectomy, Menopausal, Post Menopausal, Premenarche, Abnormal Vaginal Bleeding, Dysmenorrhea, Dyspareunia, Genital Lesions, Genital Pruritis, Pelvic Pain, Prolapse Symptoms, Sexual Dysfunction, Vaginal Discharge, Vaginal Dryness, Vaginal Odor, Vaginal Pruritis, Other - Menstruation Menstruation: As Per HPI. absent: Amenorrhea, Amenorrhea/ Control, Currently Menstual, Cycle <21 Days, Cycle >35 Days, Cycle Variable, Menses 1-7 Days, Menses >/= 8 Days, Menses Variable, Cycle > 4 Weeks Between, No Menses for 6 Months, Heavy Menses, Light Menses, Normal Menses, Spotting Between Cycles, S/P Hysterectomy, Menopausal, Post Menopausal, Premenarche, Abnormal Vaginal Bleeding, Dysmenorrhea, Other - Musculoskeletal Musculoskeletal: As Per HPI. absent: Abnormal Gait, Arthralgias, Atrophy, Back Pain, Deformity, Joint Swelling, Limited Range of Motion, Loss of Height, Muscle Cramps, Muscle Weakness, Myalgias, Neck Pain, Numbness, Radiating Pain into Li mb, Stiffness, Tingling, Other - Integumentary Integumentary: As Per HPI, Swelling. absent: Acne, Alopecia, Bleeding Lesions, Change in Hair, Change in Nails, Change in Pigmentation, Changing Lesions, Dry Skin, Erythema, Furuncle, Hirsutism, Lesions, New Lesions, Non-Healing Lesions, Photosensitivity, Pruritus, Rash, Skin Pain, Skin Ulcer, Sores, Striae, Unusual Bruising, Wounds, Jaundice, Other - Neurological Neurological: As Per HPI. absent: Abnormal Gait, Abnormal Hearing, Abnormal Movements, Abnormal Speech, Behavioral Changes, Burning Sensations, Confusion, Convulsions, Disequilibrium, Dizziness, Numbness, Focal Weakness, Frequent Falls, Headaches, Lack of Coordination, Loss of Vision, Memory Loss, Paresth esias, Radicular Pain, Restless Legs, Sensory Deficit, Syncope, Tingling, Tremor, Vertigo, Weakness, Other Visual Disturbances, Other - Psychiatric Psychiatric: As Per HPI. absent: Abnormal Sleep Pattern, Anhedonia, Anxiety, Auditory Hallucinations, Behavioral Changes, Change in Appetite, Change in Libido, Confusion, Depression, Difficulty Concentrating, Hallucinations, Homicidal Ideation, Hopelessness, Irritability, Memory Loss, Mood Swings, Panic Attacks, Paranoia, Suicidal Ideation, Visual Hallucinations, Tactile Hallucinations, Other - Endocrine Endocrine: As Per HPI. absent: Change in Body Appearance, Change in Libido, Cold Intolorance, Deepening of Voice, Excessive Sweating, Fatigue, Flushing, Heat Intolorance, Increase in Ring/Shoe/Hat Size, Palpitations, Polydipsia, Polyphagia, Polyuria, Other - Hematologic/Lymphatic Hematologic: As Per HPI. absent: Easy Bleeding, Easy Bruising, Lymphadenopathy, Other Past Patient History - Tetanus Immunizations Tetanus Immunization: Unknown - Past Medical History & Family History Past Medical History?: Yes - Past Social History Smoking Status: Never Smoked Chewing Tobacco Use: No Cigar Use: No Alcohol: None Drugs: Denies Home Situation {Lives}: Alone - CARDIAC Hx Cardiac Disorders: Yes Hx Hypercholesterolemia: Yes - PULMONARY Hx Respiratory Disorders: Yes Hx Asthma: Yes - NEUROLOGICAL Hx Neurological Disorder: No - HEENT Hx HEENT Problems: Yes Hx Cataracts: Yes - RENAL Hx Chronic Kidney Disease: No - ENDOCRINE/METABOLIC Hx Endocrine Disorders: Yes Hx Diabetes Mellitus Type 2: Yes - HEMATOLOGICAL/ONCOLOGICAL Hx Blood Disorders: Yes Hx Blood Transfusions: Yes Hx Blood Transfusion Reaction: No Hx Cancer: Yes (BILATERAL BREAST) - INTEGUMENTARY Hx Dermatological Problems: Yes Hx Cellulitis: Yes - MUSCULOSKELETAL/RHEUMATOLOGICAL Hx Musculoskeletal Disorders: Yes Hx Arthritis: Yes Hx Falls: Yes - GASTROINTESTINAL Hx Gastrointestinal Disorders: Yes Hx Gastritis: Yes - GENITOURINARY/GYNECOLOGICAL Hx Genitourinary Disorders: No - PSYCHIATRIC Hx Psychophysiologic Disorder: Yes Hx Anxiety: Yes Hx Depression: Yes Hx Substance Use: No - SURGICAL HISTORY Hx Surgeries: Yes Hx Cholecystectomy: Yes Hx Joint Replacement: Yes (R TKR) Hx Mastectomy: Yes (B/L L Breast CA) Hx Orthopedic Surgery: Yes (R TKR) - ANESTHESIA Hx Anesthesia: Yes Hx Anesthesia Reactions: No Hx Malignant Hyperthermia: No Meds Allergies/Adverse Reactions: Allergies Allergy/AdvReac Type Severity Reaction Status Date / Time Sulfa (Sulfonamide Allergy RASH Verified 07/31/18 15:13 Antibiotics) - Medications Medications: Current Medications Acetaminophen (Tylenol 325mg Tab) 650 mg PO Q4 PRN PRN Reason: Pain, moderate (4-7) Last Admin: 08/01/18 18:36 Dose: 650 mg Amylase (Pancrease [id number] [id number] U) 25,000 unit PO BIDWM [facility] Last Admin: 08/03/18 16:40 Dose: 25,000 unit Aspirin (Ecotrin) 81 mg PO DAILY [facility] Last Admin: 08/03/18 08:33 Dose: 81 mg Atenolol (Tenormin) 25 mg PO DAILY [facility] Last Admin: 08/03/18 08:37 Dose: 25 mg Calcium Carbonate (Oscal) 500 mg PO DAILY [facility] Last Admin: 08/03/18 08:35 Dose: 500 mg Clonazepam (Klonopin) 0.5 mg PO HS [facility] Last Admin: 08/02/18 21:00 Dose: 0.5 mg Donepezil HCl (Aricept) 10 mg PO HS [facility] Last Admin: 08/02/18 21:00 Dose: 10 mg Enoxaparin Sodium (Lovenox) 40 mg SC DAILY [facility]; Protocol Last Admin: 08/03/18 08:34 Dose: 40 mg Ergocalciferol (Drisdol 50,000 Intl Units Cap) 1 cap PO SUN [facility] Fluoxetine HCl (Prozac) 20 mg PO QPM [facility] Last Admin: 08/03/18 17:15 Dose: 20 mg Vancomycin HCl 1 gm/ Sodium (Chloride) 250 mls @ 166.667 mls/hr IVPB Q12 [facility]; Protocol Last Admin: 08/03/18 08:41 Dose: 166.667 mls/hr Memantine (Namenda) 10 mg PO Q12 [facility] Last Admin: 08/03/18 08:35 Dose: 10 mg Pantoprazole Sodium (Protonix Ec Tab) 40 mg PO DAILY [facility] Last Admin: 08/03/18 08:36 Dose: 40 mg Sitagliptin Phosphate (Januvia) 100 mg PO DAILY [facility] Last Admin: 08/03/18 08:34 Dose: 100 mg Physical Exam - Constitutional Appears: Non-toxic - Head Exam Head Exam: ATRAUMATIC, NORMAL INSPECTION, NORMOCEPHALIC - Eye Exam Eye Exam: EOMI, Normal appearance, PERRL. absent: Conjunctival injection, Nystagmus, Periorbital swelling, Periorbital tenderness, Scleral icterus Pupil Exam: NORMAL ACCOMODATION, PERRL. absent: Fixed, Irregular, Miosis, Mydriatic, Unequal - ENT Exam ENT Exam: Mucous Membranes Moist, Normal Exam. absent: Mucous Membranes Dry, Normal External Ear Exam, Normal Oropharynx, TM's Normal Bilaterally - Neck Exam Neck exam: Positive for: Normal Inspection. Negative for: Full Rom, Lymphadenopathy, Meningismus, Tenderness, Thyromegaly - Respiratory Exam Respiratory Exam: Clear to Auscultation Bilateral, NORMAL BREATHING PATTERN. absent: Accessory Muscle Use, Chest Wall Tenderness, Decreased Breath Sounds, Prolonged Expiratory Phase, Rales, Rhonchi, Wheezes, Respiratory Distress, Stridor - Cardiovascular Exam Cardiovascular Exam: REGULAR RHYTHM, +S1, +S2, Systolic Murmur. absent: Bradycardia, Tachycardia, Clicks, Diastolic murmur, Gallop, Irregular Rhythm, JVD, RRR, Rubs, +S4 - GI/Abdominal Exam GI & Abdominal Exam: Normal Bowel Sounds, Soft. absent: Bruit, Diminished Bowel Sounds, Distended, Firm, Guarding, Hernia, Hyperactive Bowel Sounds, Hypoactive Bowel Sounds, Mass, Organomegaly, Pulsatile Mass, Rebound, Rigid, Tenderness - Rectal Exam Rectal Exam: Deferred - Extremities Exam Extremities exam: Positive for: full ROM, normal capillary refill, pedal edema, tenderness, pedal pulses present - Back Exam Back exam: NORMAL INSPECTION. absent: CVA tenderness (L), CVA tenderness (R), FULL ROM, muscle spasm, paraspinal tenderness, rash noted, tenderness, vertebral tenderness - Neurological Exam Neurological exam: Alert, CN II-XII Intact, Normal Gait, Oriented x3, Reflexes Normal - Psychiatric Exam Psychiatric exam: Normal Affect, Normal Mood - Skin Skin Exam: Dry, Intact, Normal Color, Warm Results - Vital Signs Recent Vital Signs: Last Vital Signs Temp 99.4 F 08/03/18 17:00 Pulse 66 08/03/18 17:00 Resp 18 08/03/18 17:00 BP 154/89 H 08/03/18 17:00 Pulse Ox 96 08/03/18 17:00 - Labs Result Diagrams: 08/04/18 06:05 08/04/18 06:05 Labs: Laboratory Results - last 24 hr 08/02/18 08/03/18 08/03/18 21:09 05:47 06:31 WBC 7.3 RBC 4.06 Hgb 12.7 Hct 37.7 MCV 92.8 MCH 31.3 H MCHC 33.7 RDW 13.8 Plt Count 243 Sodium Potassium Chloride Carbon Dioxide Anion Gap BUN Creatinine Est GFR ( Amer) Est GFR (Non-Af Amer) POC Glucose (mg/dL) 124 H 126 H Random Glucose Calcium 08/03/18 08/03/18 08/03/18 06:31 10:41 15:39 WBC RBC Hgb Hct MCV MCH MCHC RDW Plt Count Sodium 140 Potassium 4.1 Chloride 103 Carbon Dioxide 26 Anion Gap 15 BUN 22 H Creatinine 0.6 L Est GFR ( Amer) > 60 Est GFR (Non-Af Amer) > 60 POC Glucose (mg/dL) 154 H 131 H Random Glucose 126 H Calcium 9.8 Assessment & Plan (1) Cellulitis of right lower extremity Status: Acute Priority: High (2) Hx of deep venous thrombosis Status: Acute (3) History of total right knee replacement (TKR) Status: Acute (4) Varicose veins of right lower extremity Status: Acute (5) Diabetes Status: Acute - Assessment and Plan (Free Text) Plan: pts edema is due to her cellulitis. per pt she had no edema in that leg prior to her inflammation and pain. recommend using lizzie stockings for any vascular insuff. that may develop from her varicose veins. No need for further intervention. thank you.
[2018-08-04 06:17] LABS: HEMOGLOBIN 13.7 g/dL (12.0-16.0); MEAN CELL VOLUME 92.7 fl (81.0-99.0); MEAN CORPUSCULAR HEMOGLOBIN 30.8 pg (27.0-31.0); MEAN CORPUSCULAR HGB CONC 33.2 g/dL (33.0-37.0); RBC 4.44 Mil/uL (3.80-5.20); RED CELL DISTRIBUTION WIDTH 13.6 % (11.5-14.5); WHITE BLOOD COUNT 7.6 K/uL (4.8-10.8)
[2018-08-04 06:41] LABS: ALB/GLOB RATIO 1.3 (1.0-2.1); ALBUMIN 4.8 g/dL (3.5-5.0); ALT/SGPT 30 U/L (9-52); AST/SGOT 33 U/L (14-36); BLOOD UREA NITROGEN 20 mg/dl (7-17); CALCIUM 10.1 mg/dL (8.4-10.2); GFR NON-AFRICAN AMERICAN > 60
[2018-08-04 08:15] VITALS: BP 135/74; PULSE 62; RESP 20; TEMP 97.6; O2SAT 96
[2018-08-04] MEDS: Amylase/Lipase/Protease 5,000 Units ECC PO SCH ×2 (09:49→16:41)
[2018-08-04] MEDS: Pantoprazole 40 mg EC Tab PO SCH (09:50)
[2018-08-04] MEDS: Enoxaparin 40 mg Syringe SC SCH (09:51)
--- NOTE | 2018-08-04 14:13 | PQF ---
PROVIDER RESPONSE TEXT: Mild cognitive impairment REVIEWER QUERY TEXT: Medication Correlation for Diagnosis Your help is needed in capturing diagnoses for the corresponding medications ordered. Please clarify in the documentation diagnoses for the following medication(s). Medications: Namenda, Aricept The patient's Clinical Indicators include: - Query created by: Jamilah Vines on 08/04/2018 1:22 PM Electronically signed by: Mynor Quick MD 08/04/2018 2:11 PM
--- NOTE | 2018-08-04 17:06 | CP.PCM.DIS ---
Provider - Provider Date of Admission: 07/31/18 18:07 Attending physician: Mynor Vicente MD Consults: 07/31/18 17:00 Podiatry Consult Stat Comment: Consulting Provider: Kehinde Kendall Consulting Physician: Kehinde Kendall Reason for Consult: CELLULITIS 08/01/18 10:05 Infectious Disease Consult Routine Comment: Consulting Provider: Nguyễn Canales Consulting Physician: Nguyễn Canales Reason for Consult: Cellulitis 08/02/18 14:15 Cardiology Consult Routine Comment: Consulting Provider: Leslie Simons Consulting Physician: Leslie Simons Reason for Consult: HTN Diagnosis - Discharge Diagnosis (1) Cellulitis of right lower extremity Status: Acute Priority: High (2) Varicose veins of lower extremity Status: Chronic Priority: High (3) DM II (diabetes mellitus, type II), controlled Status: Chronic Priority: Medium (4) History of deep vein thrombosis (DVT) of lower extremity Status: Chronic Priority: Medium (5) History of inferior vena caval filter placement Status: Chronic Priority: Medium (6) HTN (hypertension) Status: Chronic Priority: Medium Hospital Course - Lab Results Lab Results: Micro Results 07/31/18 16:44 Blood-Venous Blood Culture - Preliminary NO GROWTH AFTER 4 DAYS 07/31/18 08:09 Urine Random Urine Culture - Final No Growth (<1,000 CFU/ML) Most Recent Lab Values WBC 7.6 K/uL (4.8-10.8) 08/04/18 06:05 RBC 4.44 Mil/uL (3.80-5.20) 08/04/18 06:05 Hgb 13.7 g/dL (12.0-16.0) 08/04/18 06:05 Hct 41.1 % (34.0-47.0) 08/04/18 06:05 MCV 92.7 fl (81.0-99.0) 08/04/18 06:05 MCH 30.8 pg (27.0-31.0) 08/04/18 06:05 MCHC 33.2 g/dL (33.0-37.0) 08/04/18 06:05 RDW 13.6 % (11.5-14.5) 08/04/18 06:05 Plt Count 286 K/uL (130-400) 08/04/18 06:05 MPV 8.8 fl (7.2-11.7) 07/31/18 16:52 Neut % (Auto) 65.3 % (50.0-75.0) 07/31/18 16:52 Lymph % (Auto) 25.2 % (20.0-40.0) 07/31/18 16:52 [place] % (Auto) 7.9 % (0.0-10.0) 07/31/18 16:52 Eos % (Auto) 1.1 % (0.0-4.0) 07/31/18 16:52 Baso % (Auto) 0.5 % (0.0-2.0) 07/31/18 16:52 Neut # (Auto) 5.0 K/uL (1.8-7.0) 07/31/18 16:52 Lymph # (Auto) 1.9 K/uL (1.0-4.3) 07/31/18 16:52 [place] # (Auto) 0.6 K/uL (0.0-0.8) 07/31/18 16:52 Eos # (Auto) 0.1 K/uL (0.0-0.7) 07/31/18 16:52 Baso # (Auto) 0.0 K/uL (0.0-0.2) 07/31/18 16:52 ESR 18 mm/hr (0-30) 07/31/18 19:15 PT 11.9 Seconds (9.8-13.1) 07/31/18 16:52 INR 1.0 07/31/18 16:52 APTT 28.3 Seconds (25.6-37.1) 07/31/18 16:52 Sodium 141 mmol/l (132-148) 08/04/18 06:05 Potassium 4.2 MMOL/L (3.6-5.0) 08/04/18 06:05 Chloride 104 mmol/L (98-107) 08/04/18 06:05 Carbon Dioxide 27 mmol/L (22-30) 08/04/18 06:05 Anion Gap 14 (10-20) 08/04/18 06:05 BUN 20 mg/dl (7-17) H 08/04/18 06:05 Creatinine 0.7 mg/dl (0.7-1.2) 08/04/18 06:05 Est GFR ( Amer) > 60 08/04/18 06:05 Est GFR (Non-Af Amer) > 60 08/04/18 06:05 POC Glucose (mg/dL) 125 mg/dL (65-110) H 08/04/18 10:50 Random Glucose 134 mg/dL (65-105) H 08/04/18 06:05 Hemoglobin A1c 6.7 % (4.2-6.5) H 08/01/18 05:30 Calcium 10.1 mg/dL (8.4-10.2) 08/04/18 06:05 Total Bilirubin 0.4 mg/dl (0.2-1.3) 08/04/18 06:05 AST 33 U/L (14-36) 08/04/18 06:05 ALT 30 U/L (9-52) 08/04/18 06:05 Alkaline Phosphatase 44 U/L (38-126) 08/04/18 06:05 Total Protein 8.4 G/DL (6.3-8.2) H 08/04/18 06:05 Albumin 4.8 g/dL (3.5-5.0) 08/04/18 06:05 Globulin 3.6 gm/dL (2.2-3.9) 08/04/18 06:05 Albumin/Globulin Ratio 1.3 (1.0-2.1) 08/04/18 06:05 Triglycerides 146 mg/DL (0-149) 08/01/18 05:30 Cholesterol 118 mg/dL (0-199) 08/01/18 05:30 LDL Cholesterol Direct 55 mg/dL (0-129) 08/01/18 05:30 HDL Cholesterol 44 MG/DL (30-70) 08/01/18 05:30 25-OH Vitamin D Total 29.0 NG/ML (30.0-100.0) L 08/01/18 05:30 Thyroxine (T4) 10.5 ug/dl (5.5-11.0) 08/01/18 05:30 TSH 3rd Generation 3.21 mIU/ML (0.46-4.68) 08/01/18 05:30 Urine Color Yellow (YELLOW) 07/31/18 23:49 Urine Clarity Clear (Clear) 07/31/18 23:49 Urine pH 5.0 (5.0-8.0) 07/31/18 23:49 Ur Specific [place] 1.023 (1.003-1.030) 07/31/18 23:49 Urine Protein Negative mg/dL (NEGATIVE) 07/31/18 23:49 Urine Glucose (UA) Neg mg/dL (NEGATIVE) 07/31/18 23:49 Urine Ketones Negative mg/dL (NEGATIVE) 07/31/18 23:49 Urine Blood Small (NEGATIVE) 07/31/18 23:49 Urine Nitrate Negative (NEGATIVE) 07/31/18 23:49 Urine Bilirubin Negative (NEGATIVE) 07/31/18 23:49 Urine Urobilinogen 0.2-1.0 mg/dL (0.2-1.0) 07/31/18 23:49 Ur Leukocyte Esterase Trace Roger/uL (Negative) 07/31/18 23:49 Urine RBC (Auto) 4 /hpf (0-3) H 07/31/18 23:49 Urine Microscopic WBC 17 /hpf (0-5) H 07/31/18 23:49 Ur Squamous Epith Cells 1 /hpf (0-5) 07/31/18 23:49 Urine Creatinine 82 mg/dL (20-275) 08/01/18 08:09 Urine Microalbumin 0.5 mg/dL 08/01/18 08:09 Microalb/Creat Ratio 6 (<30) 08/01/18 08:09 Vancomycin Trough 11.8 ug/mL (5.0-10.0) H 08/03/18 21:00 Discharge Exam - Head Exam Head Exam: NORMAL INSPECTION Discharge Plan - Discharge Medications Prescriptions: Linezolid [Zyvox] 600 mg PO Q12 #10 tab - Follow Up Plan Condition: STABLE Disposition: HOME/ ROUTINE Instructions: Cellulitis (Skin Infection), Adult (DC) Additional Instructions: mantener los pies elevados cuando en casa descansando hacer liban con Dr. vicente y con Dr. simons dentro de 1 semana Referrals: Nguyễn Canales MD [Staff Provider] - Kehinde Kendall MD [Staff Provider] - Mynor Vicente MD [Family Provider] - Leslie Simons MD [Staff Provider] -
[2018-08-06] MEDS ORDERED: Ergocalciferol 50,000 Intl Units Cap PO SCH (09:00)
== END 2018-08-04 16:45 | disposition home or self-care (01) | DRG 603 ==
LOC: H.ER 15:06 → H.ERHOLD 18:07 → H.MEDSURG1 21:20
PROVIDERS: ADMIT Internal Medicine Pulmonary Disease; ATTEND Internal Medicine Pulmonary Disease
DX: L03.115 Cellulitis of right lower limb (principal); E11.9 Type 2 diabetes mellitus without complications; I83.91 Asymptomatic varicose veins of right lower extremity; G31.84 Mild cognitive impairment of uncertain or unknown etiology; Z86.718 Personal history of other venous thrombosis and embolism; E78.00 Pure hypercholesterolemia, unspecified; F41.8 Other specified anxiety disorders; I10 Essential (primary) hypertension; J45.909 Unspecified asthma, uncomplicated; K29.70 Gastritis, unspecified, without bleeding; M19.90 Unspecified osteoarthritis, unspecified site; Z85.3 Personal history of malignant neoplasm of breast; Z90.13 Acquired absence of bilateral breasts and nipples; Z96.651 Presence of right artificial knee joint; Z79.84 Long term (current) use of oral hypoglycemic drugs; Z88.2 Allergy status to sulfonamides